=== PATIENT | male | born 1965 | race African-American/Black ===

== ENCOUNTER 2020-05-11 13:12 | Inpatient (IN) | payer OTHER ==
[2020-05-11 14:18] VITALS: BMI 23.0
--- NOTE | 2020-05-11 14:21 | HP ---
CIWA Score Nausea/Vomitin Muscle Tremors: None Anxiety: 2 Agitation: 2 Paroxysmal Sweats: 2 Orientation: 0-Oriented Tacttile Disturbances: 2-Mild Itch/Numbness/Burn Auditory Disturbances: 1-Very Mild Visual Disturbances: 0-None Headache: 3-Moderate CIWA-Ar Total Score: 14 - Admission Criteria OASAS Guidelines: Admission for Medically Managed Detox: Requires at least one of the followin. CIWA greater than 12 2. Seizures within the past 24 hours 3. Delirium tremens within the past 24 hours 4. Hallucinations within the past 24 hours 5. Acute intervention needed for co occurring medical disorder 6. Acute intervention needed for co occurring psychiatric disorder 7. Severe withdrawal that cannot be handled at a lower level of care (continued vomiting, continued diarrhea, abnormal vital signs) requiring intravenous medication and/or fluids 8. Patient presents the following: CIWA greater than 12 Admission Criteria Met: Admission criteria met Admission ROS [facility] Chief Complaint: "I need to be detoxed from alcohol and go to rehab to get my life in order, to get my life back together." Allergies/Adverse Reactions: Allergies Allergy/AdvReac Type Severity Reaction Status Date / Time No Known Allergies Allergy Verified 05/11/20 14:36 History of Present Illness: 54 year old man presents for detox from alcohol. He reports last detox was in 2016 in [place]. He denies seizures but reports blackouts, last episode about 3 weeks ago. Exam Limitations: No Limitations - Ebola screening Have you traveled outside of the country in the last 21 days: No Have you had contact with anyone from an Ebola affected area: No Have you been sick,other than usual withdrawal symptoms: No Do you have a fever: No - Review of Systems Constitutional: Chills, Loss of Appetite, Changes in sleep, Unintentional Wgt. Loss EENT: reports: Blurred Vision, Throat Pain (s/p treatment with antibiotics) Respiratory: reports: No Symptoms reported, Cough Cardiac: reports: No Symptoms Reported GI: reports: Diarrhea, Nausea, Poor Fluid Intake, Abdominal cramping : reports: No Symptoms Reported Musculoskeletal: reports: Other (bottom of both feet) Neuro: reports: Headache, Numbness, Tremors Endocrine: reports: No Symptoms Reported Hematology: reports: No Symptoms Reported Psychiatric: reports: Anxious, Depressed Other Systems: Reviewed and Negative Patient History - Patient Medical History Hx Anemia: No Hx Asthma: Yes Hx Chronic Obstructive Pulmonary Disease (COPD): No Hx Cancer: No Hx Cardiac Disorders: No Hx Congestive Heart Failure: No Hx Hypertension: Yes Hx Hypercholesterolemia: No Hx Pacemaker: No HX Cerebrovascular Accident: No Hx Seizures: No Hx Dementia: No Hx Diabetes: No Hx Gastrointestinal Disorders: No Hx Liver Disease: No Hx Genitourinary Disorders: No Hx Sexually Transmitted Disorders: Yes Hx Renal Disease (ESRD): No Hx Thyroid Disease: No Hx Human Immunodeficiency Virus (HIV): Yes (diagnosed 20 years) Hx Depression: Yes Hx Suicide Attempt: Yes (4 years ago, cut wrist) Hx Bipolar Disorder: Yes Hx Schizophrenia: No - Patient Surgical History Past Surgical History: Yes Hx Neurologic Surgery: No Hx Cataract Extraction: No Hx Cardiac Surgery: No Hx Lung Surgery: No Hx Breast Surgery: No Hx Breast Biopsy: No Hx Abdominal Surgery: No Hx Appendectomy: Yes (as a child) Hx Cholecystectomy: No Hx Genitourinary Surgery: No Hx Section: No Hx Orthopedic Surgery: No Hx Hysterectomy: No Other Surgical History: bunionectomy Anesthesia Reaction: No - PPD History Previous Implant?: Yes Documented Results: Negative w/o proof Implanted On Prior R Admission?: No PPD to be Administered?: Yes - Smoking Cessation Smoking history: Current every day smoker Have you smoked in the past 12 months: Yes Aproximately how many cigarettes per day: 15 Hx Chewing Tobacco Use: No Initiated information on smoking cessation: Yes 'Breaking Loose' booklet given: 05/11/20 - Substance & Tx. History Hx Alcohol Use: Yes (beer, liqour) Hx Substance Use: Yes Substance Use Type: Alcohol, Cocaine Hx Substance Use Treatment: Yes - Substances abused Alcohol Substance route: Oral Frequency: Daily Amount used: 12 packs/day, 2 pints of scotch/merlyn Age of first use: 16 Date of last use: 05/10/20 Crack Substance route: Smoking Frequency: Daily Amount used: $100 Age of first use: 19 Date of last use: 05/10/20 Admission Physical Exam BHS - Physical General Appearance: Yes: No Apparent Distress HEENTM: Yes: Hearing grossly Normal, Normocephalic, Normal Voice, TINA Respiratory: Yes: Chest Non-Tender, Lungs Clear, Normal Breath Sounds, No Respi ratory Distress, No Accessory Muscle Use Neck: Yes: No masses,lesions,Nodules, Supple Breast: Yes: Breast Exam Deferred Cardiology: Yes: Regular Rhythm, Regular Rate, S1, S2 Abdominal: Yes: Normal Bowel Sounds, Non Tender, Soft Genitourinary: Yes: Within Normal Limits Back: Yes: Normal Inspection Musculoskeletal: Yes: full range of Motion, Gait Steady, Pelvis Stable, Muscle Pain Extremities: Yes: Normal Range of Motion, Tremors 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 NML intact, Fully Oriented, Alert, Normal Mood/Affect, Normal Response Integumentary: Yes: Cold Lymphatic: Yes: Within Normal Limits - Diagnostic (1) Alcohol dependence with withdrawal Current Visit: Yes Status: Acute Qualifiers: Complication of substance-induced condition: uncomplicated Qualified Code(s): F10.230 - Alcohol dependence with withdrawal, uncomplicated (2) HIV (human immunodeficiency virus infection) Current Visit: Yes Status: Acute Qualifiers: HIV symptom status: symptomatic Qualified Code(s): B20 - Human immunodeficiency virus [HIV] disease (3) Crack cocaine use Current Visit: Yes Status: Acute (4) Nicotine dependence Current Visit: Yes Status: Chronic Qualifiers: Nicotine product type: cigarettes Substance use status: uncomplicated Qualified Code(s): F17.210 - Nicotine dependence, cigarettes, uncomplicated Cleared for Admission [facility] - Detox or Rehab [facility] Level of Care: Medically Managed Detox Regimen/Protocol: Librium Claeared for Rehab Admission: No Inpatient Rehab Admission - Rehab Decision to Admit Inpatient rehab admission?: No
[2020-05-11] MEDS ORDERED: MAG HYDROX/AL HYDROX/SIMETH 30 ML UNIT-DOSE CUP PO PRN (14:36)
[2020-05-11] MEDS ORDERED: BISMUTH SUBSALICYLATE 524 MG/30 ML UD PO PRN (14:36)
[2020-05-11] MEDS ORDERED: chlordiazePOXIDE HCL 25 MG CAPSULE PO ONE (14:36)
[2020-05-11] MEDS ORDERED: IBUPROFEN 400 MG TABLET (FP) PO PRN (14:36)
[2020-05-11] MEDS ORDERED: ONDANSETRON *ODT* 4 MG TABLET SL ONE (14:36)
[2020-05-11] MEDS ORDERED: ACETAMINOPHEN 325 MG TABLET (FP) PO PRN ×2 (14:36)
[2020-05-11] MEDS ORDERED: chlordiazePOXIDE HCL 10 MG CAPSULE PO PRN (14:36)
[2020-05-11] MEDS ORDERED: MAGNESIUM HYDROX 2400MG/30ML ORAL SUSPENSION 30 ML CUP PO PRN (14:36)
[2020-05-11] MEDS ORDERED: MAGNESIUM CITRATE 300 ML BOTTLE PO PRN (14:36)
[2020-05-11] MEDS ORDERED: METHOCARBAMOL 500 MG TABLET PO PRN (14:36)
[2020-05-11] MEDS ORDERED: TUBERCULIN PPD 5 TU/0.1ML VIAL ID ONE (15:51)
[2020-05-11] MEDS: NICOTINE POLACRILEX 2 MG GUM BUC PRN (17:36)
[2020-05-11] MEDS ORDERED: traZODone HCL 50 MG TABLET (FP) PO ONE (22:00)
[2020-05-11] MEDS: THIAMINE HCL 100 MG TABLET (FP) PO SCH (22:28)
[2020-05-11] MEDS: MELATONIN 5 MG TABLETS PO SCH (22:28)
[2020-05-11] MEDS: chlordiazePOXIDE HCL 25 MG CAPSULE PO SCH (22:28)
[2020-05-11] MEDS: hydrOXYzine PAMOATE 25 MG CAPSULE (FP) PO PRN (22:28)
[2020-05-12] MEDS: chlordiazePOXIDE HCL 25 MG CAPSULE PO SCH ×3 (06:25→22:18)
[2020-05-12] MEDS: NICOTINE POLACRILEX 2 MG GUM BUC PRN (06:27)
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
[2020-05-12] MEDS: PRENATAL VITAMINS W/ FOLIC ACID TABLET (FP) PO SCH (10:28)
[2020-05-12] MEDS: NICOTINE 14 MG/24 HOURS TOPICAL PATCH TD SCH (10:28)
[2020-05-12] MEDS: QUEtiapine FUMARATE 25 MG TABLET PO SCH ×2 (10:29→22:18)
[2020-05-12] MEDS: ESCITALOPRAM OXALATE 10 MG TABLET PO SCH (10:29)
[2020-05-12] MEDS: DIVALPROEX SODIUM 500 MG TABLET E.C. PO SCH ×2 (10:30→22:18)
[2020-05-12 11:11] LABS: HEMATOCRIT 35.5 % (35.4-49); HEMOGLOBIN 11.3 GM/dL (11.7-16.9); MCH 28.6 pg (25.7-33.7); MCHC 31.8 g/dl (32.0-35.9); MEAN CELL VOLUME 89.9 fl (80-96); MEAN PLT VOLUME 10.7 fl (7.5-11.1); PLATELET COUNT 109 K/MM3 (134-434); RBC 3.95 M/mm3 (4.00-5.60); RDW 14.2 % (11.9-15.9); WHITE BLOOD COUNT 2.5 K/mm3 (4.0-10.0)
[2020-05-12 11:26] LABS: ALBUMIN 2.8 g/dl (3.4-5.0); BILIRUBIN,TOTAL 0.3 mg/dL (0.2-1); CALCIUM 8.2 mg/dL (8.5-10.1); CREATININE 1.1 mg/dL (0.55-1.3); POTASSIUM 3.5 mmol/L (3.5-5.1); TOT PROT 8.4 g/dl (6.4-8.2)
--- NOTE | 2020-05-12 12:01 | PN ---
S CIWA - CIWA Score Nausea/Vomitin-Mild Nausea/No Vomiting Muscle Tremors: 2 Anxiety: 2 Agitation: 1-Slight > Activity Paroxysmal Sweats: No Perspiration Orientation: 0-Oriented Tacttile Disturbances: 1-Very Mild Itch/Numbness Auditory Disturbances: 0-None Visual Disturbances: 0-None Headache: 2-Mild CIWA-Ar Total Score: 9 BHS Progress Note (SOAP) Subjective: alert,irritable,anxious,interrupted sleep,pain in the body Objective: 05/12/20 11:57 Vital Signs Temperature 97.7 F 05/12/20 09:26 Pulse Rate 74 05/12/20 09:26 Respiratory Rate 18 05/12/20 09:26 Blood Pressure 104/59 L 05/12/20 09:26 O2 Sat by Pulse Oximetry (%) 96 05/12/20 09:26 05/12/20 11:57 Laboratory Last Values WBC 2.5 K/mm3 (4.0-10.0) L 05/12/20 08:00 RBC 3.95 M/mm3 (4.00-5.60) L 05/12/20 08:00 Hgb 11.3 GM/dL (11.7-16.9) L 05/12/20 08:00 Hct 35.5 % (35.4-49) 05/12/20 08:00 MCV 89.9 fl (80-96) 05/12/20 08:00 MCH 28.6 pg (25.7-33.7) 05/12/20 08:00 MCHC 31.8 g/dl (32.0-35.9) L 05/12/20 08:00 RDW 14.2 % (11.9-15.9) 05/12/20 08:00 Plt Count 109 K/MM3 (134-434) L 05/12/20 08:00 MPV 10.7 fl (7.5-11.1) 05/12/20 08:00 Sodium 142 mmol/L (136-145) 05/12/20 08:00 Potassium 3.5 mmol/L (3.5-5.1) 05/12/20 08:00 Chloride 110 mmol/L (98-107) H 05/12/20 08:00 Carbon Dioxide 27 mmol/L (21-32) 05/12/20 08:00 Anion Gap 5 MMOL/L (8-16) L 05/12/20 08:00 BUN 20.0 mg/dL (7-18) H 05/12/20 08:00 Creatinine 1.1 mg/dL (0.55-1.3) 05/12/20 08:00 Est GFR (CKD-EPI)AfAm 88.36 05/12/20 08:00 Est GFR (CKD-EPI)NonAf 76.24 05/12/20 08:00 Random Glucose 116 mg/dL (74-106) H 05/12/20 08:00 Calcium 8.2 mg/dL (8.5-10.1) L 05/12/20 08:00 Total Bilirubin 0.3 mg/dL (0.2-1) 05/12/20 08:00 AST 42 U/L (15-37) H 05/12/20 08:00 ALT 38 U/L (13-61) 05/12/20 08:00 Alkaline Phosphatase 79 U/L (45-117) 05/12/20 08:00 Total Protein 8.4 g/dl (6.4-8.2) H 05/12/20 08:00 Albumin 2.8 g/dl (3.4-5.0) L 05/12/20 08:00 Assessment: 05/12/20 11:58 withdrawal symptom Plan: continue detox librium regimen,pancytopenia most probably form alcoholim and hiv,azothemia dehydration,encourage oral fluid,ensure plus, repeat cbc,cmp,inr in am patient stated he has hiv for 20 years has been complied with medication, descovy 200mg-25 mg 1 tab po hs last taken 05/10/2020 isentress 400 mgs po bid last taken 05/10/2020 amlodipine 5 mgs po daily last 05/10/2020 did not have to take albuterol inhaler for the long time and does not need it
[2020-05-12] MEDS ORDERED: ALBUTEROL SO4 HFA INHALER IH PRN (14:21)
[2020-05-12] MEDS: hydrOXYzine PAMOATE 25 MG CAPSULE (FP) PO PRN (22:18)
[2020-05-12] MEDS: RALTEGRAVIR POTASSIUM 400 MG TAB PO SCH (22:18)
[2020-05-12] MEDS: THIAMINE HCL 100 MG TABLET (FP) PO SCH (22:18)
[2020-05-12] MEDS: MELATONIN 5 MG TABLETS PO SCH (22:18)
[2020-05-12] MEDS: QUEtiapine FUMARATE 300 MG TABLET PO SCH (22:18)
[2020-05-12] MEDS: EMTRICITABINE/TENOFOV ALAFENAM (DESCOVY) TABLET PO SCH (22:20)
[2020-05-13] MEDS: chlordiazePOXIDE 5 MG CAPSULE PO SCH ×3 (06:43→21:31)
[2020-05-13] MEDS: ESCITALOPRAM OXALATE 10 MG TABLET PO SCH (10:24)
[2020-05-13] MEDS: QUEtiapine FUMARATE 25 MG TABLET PO SCH ×2 (10:24→21:32)
[2020-05-13] MEDS: PRENATAL VITAMINS W/ FOLIC ACID TABLET (FP) PO SCH (10:24)
[2020-05-13] MEDS: SULFAMETHOXAZOLE/TRIMETHOPRIM 800MG/160MG D.S. TABLET PO SCH (10:24)
[2020-05-13] MEDS: amLODIPine BESYLATE 5 MG TABLET (FP) PO SCH (10:24)
[2020-05-13] MEDS: RALTEGRAVIR POTASSIUM 400 MG TAB PO SCH ×2 (10:24→21:32)
[2020-05-13] MEDS: DIVALPROEX SODIUM 500 MG TABLET E.C. PO SCH ×2 (10:24→21:32)
[2020-05-13] MEDS: NICOTINE 14 MG/24 HOURS TOPICAL PATCH TD SCH (10:25)
[2020-05-13 11:55] LABS: HEMATOCRIT 34.6 % (35.4-49); HEMOGLOBIN 11.1 GM/dL (11.7-16.9); MCH 28.9 pg (25.7-33.7); MCHC 32.1 g/dl (32.0-35.9); MEAN PLT VOLUME 11.1 fl (7.5-11.1); PLATELET COUNT 116 K/MM3 (134-434); RBC 3.85 M/mm3 (4.00-5.60); RDW 14.7 % (11.9-15.9); WHITE BLOOD COUNT 2.4 K/mm3 (4.0-10.0)
[2020-05-13 11:57] LABS: INR 0.91 (0.83-1.09); PROTHROMBIN TIME (PATIENT) 10.7 SEC (9.7-13.0)
[2020-05-13 12:00] LABS: ALBUMIN 2.8 g/dl (3.4-5.0); BILIRUBIN,TOTAL 0.4 mg/dL (0.2-1); BLOOD UREA NITROGEN 14.9 mg/dL (7-18); CALCIUM 8.6 mg/dL (8.5-10.1); POTASSIUM 3.9 mmol/L (3.5-5.1); TOT PROT 8.4 g/dl (6.4-8.2)
--- NOTE | 2020-05-13 12:31 | PN ---
S CIWA - CIWA Score Nausea/Vomitin-No Nausea/No Vomiting Muscle Tremors: 2 Anxiety: 4-Mod. Anxious/Guarded Agitation: 0-Normal Activity Paroxysmal Sweats: No Perspiration Orientation: 0-Oriented Tacttile Disturbances: 0-None Auditory Disturbances: 0-None Visual Disturbances: 0-None Headache: 0-None Present CIWA-Ar Total Score: 6 BHS Progress Note (SOAP) Subjective: pt c/o slight tremors fatigue and sleepy intermittent sleep last night sweats feet pain Objective: 05/13/20 12:39 Vital Signs - 24 hr 05/12/20 05/12/20 05/12/20 13:08 16:20 20:20 Temperature 98.2 F 97.5 F L 97.5 F L Pulse Rate 87 89 85 Respiratory 16 18 18 Rate Blood Pressure 124/70 118/72 137/85 O2 Sat by Pulse 96 Oximetry (%) 05/12/20 05/13/20 05/13/20 20:30 06:18 09:30 Temperature 98.2 F 97.8 F Pulse Rate 105 H 81 Respiratory 18 18 Rate Blood Pressure 124/81 124/72 O2 Sat by Pulse 98 94 L 97 Oximetry (%) Laboratory Tests 05/11/20 05/11/20 05/11/20 08:00 08:00 13:15 WBC RBC Hgb Hct MCV MCH MCHC RDW Plt Count MPV PT with INR INR Sodium Potassium Chloride Carbon Dioxide Anion Gap BUN Creatinine Est GFR (CKD-EPI)AfAm Est GFR (CKD-EPI)NonAf Random Glucose Calcium Total Bilirubin AST ALT Alkaline Phosphatase Total Protein Albumin Valproic Acid Syphilis Serology Reactive A* RPR Titer Reactive 1:1 H COVID-19 ([facility]) Not detected 05/12/20 05/12/20 05/12/20 08:00 08:00 09:00 WBC 2.5 L RBC 3.95 L Hgb 11.3 L Hct 35.5 MCV 89.9 MCH 28.6 MCHC 31.8 L RDW 14.2 Plt Count 109 L MPV 10.7 PT with INR INR Sodium 142 Potassium 3.5 Chloride 110 H Carbon Dioxide 27 Anion Gap 5 L BUN 20.0 H Creatinine 1.1 Est GFR (CKD-EPI)AfAm 88.36 Est GFR (CKD-EPI)NonAf 76.24 Random Glucose 116 H Calcium 8.2 L Total Bilirubin 0.3 AST 42 H ALT 38 Alkaline Phosphatase 79 Total Protein 8.4 H Albumin 2.8 L Valproic Acid 9.7 L Syphilis Serology RPR Titer COVID-19 ([facility]A) 05/13/20 05/13/20 05/13/20 08:15 08:15 08:15 WBC 2.4 L RBC 3.85 L Hgb 11.1 L Hct 34.6 L MCV 90.0 MCH 28.9 MCHC 32.1 RDW 14.7 Plt Count 116 L MPV 11.1 PT with INR 10.70 INR 0.91 Sodium 143 Potassium 3.9 Chloride 112 H Carbon Dioxide 26 Anion Gap 5 L BUN 14.9 Creatinine 1.0 Est GFR (CKD-EPI)AfAm 99.15 Est GFR (CKD-EPI)NonAf 85.55 Random Glucose 94 Calcium 8.6 Total Bilirubin 0.4 AST 33 ALT 36 Alkaline Phosphatase 86 Total Protein 8.4 H Albumin 2.8 L Valproic Acid Syphilis Serology RPR Titer COVID-19 ([facility]) labs noted. Pt reports unaware of previous syphilis infection and has never been treated for such in the past but was at "[facility] for throat pain from a woman and was treated with penicillin". Pt is a poor historian. alert o x 3 nad oob ambulating with steady gait 05/14/20 13:33 Assessment: 05/13/20 12:40 withdrawal sx Plan: cont detox increase po fluids maintain safety Will see patient again tomorrow to ask further question on syphilis status.
[2020-05-13] MEDS: THIAMINE HCL 100 MG TABLET (FP) PO SCH (21:31)
[2020-05-13] MEDS: QUEtiapine FUMARATE 300 MG TABLET PO SCH (21:31)
[2020-05-13] MEDS: EMTRICITABINE/TENOFOV ALAFENAM (DESCOVY) TABLET PO SCH (21:32)
[2020-05-13] MEDS: hydrOXYzine PAMOATE 25 MG CAPSULE (FP) PO PRN (21:32)
[2020-05-13] MEDS: MELATONIN 5 MG TABLETS PO SCH (21:33)
[2020-05-14] MEDS ORDERED: chlordiazePOXIDE HCL 10 MG CAPSULE PO PRN
[2020-05-14] MEDS: hydrOXYzine PAMOATE 25 MG CAPSULE (FP) PO PRN ×2 (06:29→22:20)
[2020-05-14] MEDS: chlordiazePOXIDE HCL 10 MG CAPSULE PO SCH ×3 (06:32→22:21)
[2020-05-14] MEDS: DIVALPROEX SODIUM 500 MG TABLET E.C. PO SCH ×2 (10:20→22:21)
[2020-05-14] MEDS: QUEtiapine FUMARATE 25 MG TABLET PO SCH ×2 (10:20→22:36)
[2020-05-14] MEDS: SULFAMETHOXAZOLE/TRIMETHOPRIM 800MG/160MG D.S. TABLET PO SCH (10:20)
[2020-05-14] MEDS: amLODIPine BESYLATE 5 MG TABLET (FP) PO SCH (10:20)
[2020-05-14] MEDS: ESCITALOPRAM OXALATE 10 MG TABLET PO SCH (10:20)
[2020-05-14] MEDS: NICOTINE 14 MG/24 HOURS TOPICAL PATCH TD SCH (10:21)
[2020-05-14] MEDS: RALTEGRAVIR POTASSIUM 400 MG TAB PO SCH ×2 (10:21→22:21)
[2020-05-14] MEDS: PRENATAL VITAMINS W/ FOLIC ACID TABLET (FP) PO SCH (10:21)
--- NOTE | 2020-05-14 13:35 | PN ---
[facility] CIWA - CIWA Score Nausea/Vomitin-No Nausea/No Vomiting Muscle Tremors: 3 Anxiety: 4-Mod. Anxious/Guarded Agitation: 2 Paroxysmal Sweats: No Perspiration Orientation: 0-Oriented Tacttile Disturbances: 0-None Auditory Disturbances: 0-None Visual Disturbances: 0-None Headache: 0-None Present CIWA-Ar Total Score: 9 BHS Progress Note (SOAP) Subjective: c/o anxiety slight tremors fatigue Pt denies any symptoms. Afebrile. Objective: 05/14/20 13:44 Vital Signs - 24 hr 05/13/20 05/13/20 05/14/20 16:46 20:25 06:12 Temperature 98.2 F 97.3 F L 98.4 F Pulse Rate 87 89 75 Respiratory 17 20 20 Rate Blood Pressure 107/72 131/75 147/91 O2 Sat by Pulse 96 94 L Oximetry (%) Laboratory Tests 05/11/20 05/11/20 05/11/20 08:00 08:00 13:15 WBC RBC Hgb Hct MCV MCH MCHC RDW Plt Count MPV PT with INR INR Sodium Potassium Chloride Carbon Dioxide Anion Gap BUN Creatinine Est GFR (CKD-EPI)AfAm Est GFR (CKD-EPI)NonAf Random Glucose Calcium Total Bilirubin AST ALT Alkaline Phosphatase Total Protein Albumin Valproic Acid Syphilis Serology Reactive A* RPR Titer Reactive 1:1 H COVID-19 ([facility]) Not detected 05/12/20 05/12/20 05/12/20 08:00 08:00 09:00 WBC 2.5 L RBC 3.95 L Hgb 11.3 L Hct 35.5 MCV 89.9 MCH 28.6 MCHC 31.8 L RDW 14.2 Plt Count 109 L MPV 10.7 PT with INR INR Sodium 142 Potassium 3.5 Chloride 110 H Carbon Dioxide 27 Anion Gap 5 L BUN 20.0 H Creatinine 1.1 Est GFR (CKD-EPI)AfAm 88.36 Est GFR (CKD-EPI)NonAf 76.24 Random Glucose 116 H Calcium 8.2 L Total Bilirubin 0.3 AST 42 H ALT 38 Alkaline Phosphatase 79 Total Protein 8.4 H Albumin 2.8 L Valproic Acid 9.7 L Syphilis Serology RPR Titer COVID-19 ([facility]ISTA) Alert o x 3 nad oob ambulating with steady gait Medically stable Today, pt reports he was at [facility] for Suicidal ideation 1 - 2 weeks ago and had sore throat at the time and was given lozenges. Also states lab work was drawn but did not get result before leaving. Asked pt again re:past syphilis hx and he said no past infection known. Pt reports unprotected sex the past weeks. Pt reports no steady PCP having moved from [place] 3 months ago but received care at [facility],last visit at [facility] 1-2 weeks ago as above. Reports he was restarted with his antiretroviral medications at the "[facility]" but has no current I.D clinic meanwhile. Pt reports he is currently undomiciled with no steady housing. Assessment: 05/14/20 13:58 withdrawal sx Plan: cont detox increase po fluids maintain safety Bicillin LA 2.4 mil. units x once Pt is interested in Rehab treatment for CD aftercare. Pt may D/.c to rehab in the morning if bed is available
[2020-05-14] MEDS ORDERED: PENICILLIN G BENZATHINE 2,400,000 UNIT/4 ML PFS IM ONE (14:00)
[2020-05-14] MEDS: QUEtiapine FUMARATE 300 MG TABLET PO SCH (22:21)
[2020-05-14] MEDS: THIAMINE HCL 100 MG TABLET (FP) PO SCH (22:21)
[2020-05-14] MEDS: MELATONIN 5 MG TABLETS PO SCH (22:22)
[2020-05-14] MEDS: EMTRICITABINE/TENOFOV ALAFENAM (DESCOVY) TABLET PO SCH (22:24)
[2020-05-15] MEDS ORDERED: chlordiazePOXIDE HCL 10 MG CAPSULE PO ONE (05:00)
[2020-05-15] MEDS: PRENATAL VITAMINS W/ FOLIC ACID TABLET (FP) PO SCH (09:40)
[2020-05-15] MEDS: SULFAMETHOXAZOLE/TRIMETHOPRIM 800MG/160MG D.S. TABLET PO SCH (09:40)
[2020-05-15] MEDS: ESCITALOPRAM OXALATE 10 MG TABLET PO SCH (09:40)
[2020-05-15] MEDS: amLODIPine BESYLATE 5 MG TABLET (FP) PO SCH (09:40)
[2020-05-15] MEDS: DIVALPROEX SODIUM 500 MG TABLET E.C. PO SCH ×2 (09:40→21:02)
[2020-05-15] MEDS: RALTEGRAVIR POTASSIUM 400 MG TAB PO SCH ×2 (09:40→22:46)
[2020-05-15] MEDS: NICOTINE 14 MG/24 HOURS TOPICAL PATCH TD SCH (09:40)
[2020-05-15] MEDS: QUEtiapine FUMARATE 25 MG TABLET PO SCH ×2 (09:40→22:46)
[2020-05-15] MEDS: MENTHOL/PHENOL 1 EACH UD MM PRN (09:47)
--- NOTE | 2020-05-15 09:55 | DS ---
[facility] Detox Discharge Summary Admission Date: 05/11/20 Discharge Date: 05/15/20 - History Present History: Alcohol Dependence, Cocaine Dependence Pertinent Past History: Asthma HIV+ HTN PTSD ADDH - Physical Exam Results Vital Signs: Vital Signs Temperature 98.2 F 05/15/20 07:01 Pulse Rate 79 05/15/20 07:01 Respiratory Rate 18 05/15/20 07:01 Blood Pressure 138/81 05/15/20 07:01 O2 Sat by Pulse Oximetry (%) 97 05/15/20 07:01 Alert o x 3 nad oob ambulating with steady gait cardiac:s1 s2,rrr lungs:ctab abdomen:soft,+bs,nt,nd extremities:no edema,skin intact Pertinent Admission Physical Exam Findings: Laboratory Tests 05/11/20 05/11/20 05/11/20 08:00 08:00 13:15 WBC RBC Hgb Hct MCV MCH MCHC RDW Plt Count MPV PT with INR INR Sodium Potassium Chloride Carbon Dioxide Anion Gap BUN Creatinine Est GFR (CKD-EPI)AfAm Est GFR (CKD-EPI)NonAf Random Glucose Calcium Total Bilirubin AST ALT Alkaline Phosphatase Total Protein Albumin Valproic Acid Syphilis Serology Reactive A* RPR Titer Reactive 1:1 H COVID-19 ([facility]) Not detected 05/12/20 05/12/20 05/12/20 08:00 08:00 09:00 WBC 2.5 L RBC 3.95 L Hgb 11.3 L Hct 35.5 MCV 89.9 MCH 28.6 MCHC 31.8 L RDW 14.2 Plt Count 109 L MPV 10.7 PT with INR INR Sodium 142 Potassium 3.5 Chloride 110 H Carbon Dioxide 27 Anion Gap 5 L BUN 20.0 H Creatinine 1.1 Est GFR (CKD-EPI)AfAm 88.36 Est GFR (CKD-EPI)NonAf 76.24 Random Glucose 116 H Calcium 8.2 L Total Bilirubin 0.3 AST 42 H ALT 38 Alkaline Phosphatase 79 Total Protein 8.4 H Albumin 2.8 L Valproic Acid 9.7 L Syphilis Serology RPR Titer COVID-19 ([facility]ISTA) 05/13/20 05/13/20 05/13/20 08:15 08:15 08:15 WBC 2.4 L RBC 3.85 L Hgb 11.1 L Hct 34.6 L MCV 90.0 MCH 28.9 MCHC 32.1 RDW 14.7 Plt Count 116 L MPV 11.1 PT with INR 10.70 INR 0.91 Sodium 143 Potassium 3.9 Chloride 112 H Carbon Dioxide 26 Anion Gap 5 L BUN 14.9 Creatinine 1.0 Est GFR (CKD-EPI)AfAm 99.15 Est GFR (CKD-EPI)NonAf 85.55 Random Glucose 94 Calcium 8.6 Total Bilirubin 0.4 AST 33 ALT 36 Alkaline Phosphatase 86 Total Protein 8.4 H Albumin 2.8 L Valproic Acid Syphilis Serology RPR Titer COVID-19 ([facility]ISTA) Bicillin LA 2.4 mil. unit x 1 given on 05/14/[address] [place] [address]. - Treatment Hospital Course: Detox Protocol Followed, Detoxed Safely, Responded well, Discharged Condition Good, Rehab Referral Accepted Patient has Accepted a Rehab Referral to: [facility] - Medication Discharge Medications: Ambulatory Orders Amlodipine Besylate [Norvasc -] 5 mg PO DAILY 05/11/20 Divalproex [Depakote -] 500 mg PO BID 05/11/20 Emtricitabine/Tenofov Alafenam [Descovy 200-25 mg Tablet (Nf)] 1 each PO DAILY 05/11/20 Escitalopram Oxalate [Lexapro -] 10 mg PO DAILY 05/11/20 Mirtazapine [Remeron -] 15 mg PO DAILY 05/11/20 Quetiapine Fumarate [Seroquel -] 25 mg PO BID 05/11/20 Quetiapine Fumarate [Seroquel -] 300 mg PO HS 05/11/20 Raltegravir Potassium [Isentress] 400 mg PO BID 05/11/20 Sulfamethoxazole/Trimethoprim [Bactrim Ds -] 1 tab PO DAILY 05/11/20 traZODone HCL [Trazodone HCl] 100 mg PO HS 05/11/20 - Diagnosis (1) Alcohol dependence with withdrawal Current Visit: Yes Status: Acute Qualifiers: Complication of substance-induced condition: uncomplicated Qualified Code(s): F10.230 - Alcohol dependence with withdrawal, uncomplicated (2) Cocaine dependence Current Visit: Yes Status: Acute (3) Bronchial asthma Current Visit: Yes Status: Chronic (4) HIV (human immunodeficiency virus infection) Current Visit: Yes Status: Chronic Qualifiers: HIV symptom status: symptomatic Qualified Code(s): B20 - Human immunodeficiency virus [HIV] disease (5) HTN (hypertension) Current Visit: Yes Status: Chronic (6) Nicotine dependence Current Visit: Yes Status: Chronic Qualifiers: Nicotine product type: cigarettes Substance use status: uncomplicated Qualified Code(s): F17.210 - Nicotine dependence, cigarettes, uncomplicated - AMA Did Patient Leave Against Medical Advice: No
[2020-05-15] MEDS ORDERED: PT OWN MED DRAWER 7, Y5N ONE (20:24)
[2020-05-15] MEDS: MELATONIN 5 MG TABLETS PO SCH (21:02)
[2020-05-15] MEDS: QUEtiapine FUMARATE 300 MG TABLET PO SCH (21:02)
[2020-05-15] MEDS: THIAMINE HCL 100 MG TABLET (FP) PO SCH (21:02)
[2020-05-15] MEDS: EMTRICITABINE/TENOFOV ALAFENAM (DESCOVY) TABLET PO SCH (22:46)
[2020-05-16] MEDS ORDERED: PT OWN MED DRAWER 7, Y5N ONE ×2 (08:18→19:16)
[2020-05-16] MEDS: ESCITALOPRAM OXALATE 10 MG TABLET PO SCH (09:14)
[2020-05-16] MEDS: DIVALPROEX SODIUM 500 MG TABLET E.C. PO SCH ×2 (09:14→21:32)
[2020-05-16] MEDS: SULFAMETHOXAZOLE/TRIMETHOPRIM 800MG/160MG D.S. TABLET PO SCH (09:14)
[2020-05-16] MEDS: NICOTINE 14 MG/24 HOURS TOPICAL PATCH TD SCH (09:15)
[2020-05-16] MEDS: amLODIPine BESYLATE 5 MG TABLET (FP) PO SCH (09:16)
[2020-05-16] MEDS: RALTEGRAVIR POTASSIUM 400 MG TAB PO SCH ×2 (09:47→21:32)
[2020-05-16] MEDS: QUEtiapine FUMARATE 25 MG TABLET PO SCH ×2 (09:47→21:33)
[2020-05-16] MEDS: PRENATAL VITAMINS W/ FOLIC ACID TABLET (FP) PO SCH (09:47)
[2020-05-16] MEDS: EMTRICITABINE/TENOFOV ALAFENAM (DESCOVY) TABLET PO SCH (21:32)
[2020-05-16] MEDS: QUEtiapine FUMARATE 300 MG TABLET PO SCH (21:32)
[2020-05-16] MEDS: MELATONIN 5 MG TABLETS PO SCH (21:32)
[2020-05-16] MEDS: THIAMINE HCL 100 MG TABLET (FP) PO SCH (21:33)
[2020-05-17] MEDS ORDERED: MASKS NR ONE (05:53)
[2020-05-17] MEDS ORDERED: PT OWN MED DRAWER 7, Y5N ONE (08:46)
[2020-05-17] MEDS: SULFAMETHOXAZOLE/TRIMETHOPRIM 800MG/160MG D.S. TABLET PO SCH (09:26)
[2020-05-17] MEDS: ESCITALOPRAM OXALATE 10 MG TABLET PO SCH (09:26)
[2020-05-17] MEDS: DIVALPROEX SODIUM 500 MG TABLET E.C. PO SCH ×2 (09:26→21:51)
[2020-05-17] MEDS: amLODIPine BESYLATE 5 MG TABLET (FP) PO SCH (09:26)
[2020-05-17] MEDS: PRENATAL VITAMINS W/ FOLIC ACID TABLET (FP) PO SCH (09:27)
[2020-05-17] MEDS: NICOTINE 14 MG/24 HOURS TOPICAL PATCH TD SCH (09:27)
[2020-05-17] MEDS: QUEtiapine FUMARATE 25 MG TABLET PO SCH ×2 (09:27→21:51)
[2020-05-17] MEDS: MENTHOL/PHENOL 1 EACH UD MM PRN (09:29)
[2020-05-17] MEDS: RALTEGRAVIR POTASSIUM 400 MG TAB PO SCH ×2 (09:52→21:52)
[2020-05-17] MEDS: EMTRICITABINE/TENOFOV ALAFENAM (DESCOVY) TABLET PO SCH (21:52)
[2020-05-17] MEDS: QUEtiapine FUMARATE 300 MG TABLET PO SCH (21:52)
[2020-05-17] MEDS: MELATONIN 5 MG TABLETS PO SCH (21:52)
[2020-05-17] MEDS: THIAMINE HCL 100 MG TABLET (FP) PO SCH (21:53)
[2020-05-18] MEDS ORDERED: PT OWN MED DRAWER 7, Y5N ONE ×2 (08:44→21:33)
[2020-05-18] MEDS: RALTEGRAVIR POTASSIUM 400 MG TAB PO SCH ×2 (09:31→21:32)
[2020-05-18] MEDS: ESCITALOPRAM OXALATE 10 MG TABLET PO SCH (09:31)
[2020-05-18] MEDS: QUEtiapine FUMARATE 25 MG TABLET PO SCH ×2 (09:31→22:37)
[2020-05-18] MEDS: amLODIPine BESYLATE 5 MG TABLET (FP) PO SCH (09:31)
[2020-05-18] MEDS: DIVALPROEX SODIUM 500 MG TABLET E.C. PO SCH ×2 (09:31→22:37)
[2020-05-18] MEDS: SULFAMETHOXAZOLE/TRIMETHOPRIM 800MG/160MG D.S. TABLET PO SCH (09:31)
[2020-05-18] MEDS: PRENATAL VITAMINS W/ FOLIC ACID TABLET (FP) PO SCH (09:32)
[2020-05-18] MEDS: NICOTINE 14 MG/24 HOURS TOPICAL PATCH TD SCH (09:33)
[2020-05-18] MEDS: THIAMINE HCL 100 MG TABLET (FP) PO SCH (21:28)
[2020-05-18] MEDS: MELATONIN 5 MG TABLETS PO SCH (21:28)
[2020-05-18] MEDS: QUEtiapine FUMARATE 300 MG TABLET PO SCH (21:28)
[2020-05-18] MEDS: EMTRICITABINE/TENOFOV ALAFENAM (DESCOVY) TABLET PO SCH (21:33)
[2020-05-19] MEDS: PRENATAL VITAMINS W/ FOLIC ACID TABLET (FP) PO SCH (10:12)
[2020-05-19] MEDS: NICOTINE 14 MG/24 HOURS TOPICAL PATCH TD SCH (10:12)
[2020-05-19] MEDS: amLODIPine BESYLATE 5 MG TABLET (FP) PO SCH (10:12)
[2020-05-19] MEDS: ESCITALOPRAM OXALATE 10 MG TABLET PO SCH (10:12)
[2020-05-19] MEDS: DIVALPROEX SODIUM 500 MG TABLET E.C. PO SCH ×2 (11:37→21:15)
[2020-05-19] MEDS: RALTEGRAVIR POTASSIUM 400 MG TAB PO SCH ×2 (11:37→21:16)
[2020-05-19] MEDS: SULFAMETHOXAZOLE/TRIMETHOPRIM 800MG/160MG D.S. TABLET PO SCH (11:37)
[2020-05-19] MEDS: QUEtiapine FUMARATE 25 MG TABLET PO SCH ×2 (11:37→21:19)
--- NOTE | 2020-05-19 13:57 | PN ---
[facility] Progress Note Note: Patient evaluated for c/o swelling to bilateral feet. Patient has hx of HTN and alcohol dependence. Treated with amlodipine 5mg daily. He denies any c/o chest pain, sob and dizziness. Laboratory Tests 05/11/20 05/11/20 05/11/20 08:00 08:00 13:15 WBC RBC Hgb Hct MCV MCH MCHC RDW Plt Count MPV PT with INR INR Sodium Potassium Chloride Carbon Dioxide Anion Gap BUN Creatinine Est GFR (CKD-EPI)AfAm Est GFR (CKD-EPI)NonAf Random Glucose Calcium Total Bilirubin AST ALT Alkaline Phosphatase Total Protein Albumin Valproic Acid Syphilis Serology Reactive A* RPR Titer Reactive 1:1 H COVID-19 (TRISTA) Not detected 05/12/20 05/12/20 05/12/20 08:00 08:00 09:00 WBC 2.5 L RBC 3.95 L Hgb 11.3 L Hct 35.5 MCV 89.9 MCH 28.6 MCHC 31.8 L RDW 14.2 Plt Count 109 L MPV 10.7 PT with INR INR Sodium 142 Potassium 3.5 Chloride 110 H Carbon Dioxide 27 Anion Gap 5 L BUN 20.0 H Creatinine 1.1 Est GFR (CKD-EPI)AfAm 88.36 Est GFR (CKD-EPI)NonAf 76.24 Random Glucose 116 H Calcium 8.2 L Total Bilirubin 0.3 AST 42 H ALT 38 Alkaline Phosphatase 79 Total Protein 8.4 H Albumin 2.8 L Valproic Acid 9.7 L Syphilis Serology RPR Titer COVID-19 (TRISTA) 05/13/20 05/13/20 05/13/20 08:15 08:15 08:15 WBC 2.4 L RBC 3.85 L Hgb 11.1 L Hct 34.6 L MCV 90.0 MCH 28.9 MCHC 32.1 RDW 14.7 Plt Count 116 L MPV 11.1 PT with INR 10.70 INR 0.91 Sodium 143 Potassium 3.9 Chloride 112 H Carbon Dioxide 26 Anion Gap 5 L BUN 14.9 Creatinine 1.0 Est GFR (CKD-EPI)AfAm 99.15 Est GFR (CKD-EPI)NonAf 85.55 Random Glucose 94 Calcium 8.6 Total Bilirubin 0.4 AST 33 ALT 36 Alkaline Phosphatase 86 Total Protein 8.4 H Albumin 2.8 L Valproic Acid Syphilis Serology RPR Titer COVID-19 (TRISTA) PE alert and oriented x 3 skin warm and dry neck supple, no jvd in nad ext full rom, amb ad dragan +1 bilateral pitting pedal edema A/P Edema HTN Alcohol dependence Will d/c norvasc start HCTZ 25mg daily LULI stockings leg elevation prn monitor clinically
[2020-05-19] MEDS: HYDROCHLOROTHIAZIDE 25 MG TABLET (FP) PO SCH (14:06)
[2020-05-19] MEDS: QUEtiapine FUMARATE 300 MG TABLET PO SCH (21:15)
[2020-05-19] MEDS: THIAMINE HCL 100 MG TABLET (FP) PO SCH (21:15)
[2020-05-19] MEDS: MELATONIN 5 MG TABLETS PO SCH (21:15)
[2020-05-19] MEDS ORDERED: PT OWN MED DRAWER 7, Y5N ONE (21:17)
[2020-05-19] MEDS: EMTRICITABINE/TENOFOV ALAFENAM (DESCOVY) TABLET PO SCH (21:19)
[2020-05-20] MEDS ORDERED: PT OWN MED DRAWER 7, Y5N ONE ×2 (08:12→19:33)
[2020-05-20] MEDS: SULFAMETHOXAZOLE/TRIMETHOPRIM 800MG/160MG D.S. TABLET PO SCH (09:32)
[2020-05-20] MEDS: DIVALPROEX SODIUM 500 MG TABLET E.C. PO SCH ×2 (09:32→21:11)
[2020-05-20] MEDS: RALTEGRAVIR POTASSIUM 400 MG TAB PO SCH ×2 (09:33→21:11)
[2020-05-20] MEDS: ESCITALOPRAM OXALATE 10 MG TABLET PO SCH (09:33)
[2020-05-20] MEDS: NICOTINE 14 MG/24 HOURS TOPICAL PATCH TD SCH (09:33)
[2020-05-20] MEDS: PRENATAL VITAMINS W/ FOLIC ACID TABLET (FP) PO SCH (09:33)
[2020-05-20] MEDS: QUEtiapine FUMARATE 25 MG TABLET PO SCH (09:33)
[2020-05-20] MEDS: HYDROCHLOROTHIAZIDE 25 MG TABLET (FP) PO SCH (09:41)
--- NOTE | 2020-05-20 18:55 | PN ---
[facility] Progress Note Note: Psychiatry Attending's note : At ADRIANA Frances's request : order for seroquel 25 mg po bid Changed to 25 mg po @ 10 am + 4 pm. With patient's reported consent.
[2020-05-20] MEDS: THIAMINE HCL 100 MG TABLET (FP) PO SCH (21:11)
[2020-05-20] MEDS: QUEtiapine FUMARATE 300 MG TABLET PO SCH (21:11)
[2020-05-20] MEDS: MELATONIN 5 MG TABLETS PO SCH (21:11)
[2020-05-20] MEDS: EMTRICITABINE/TENOFOV ALAFENAM (DESCOVY) TABLET PO SCH (21:12)
[2020-05-21] MEDS: HYDROCHLOROTHIAZIDE 25 MG TABLET (FP) PO SCH (09:45)
[2020-05-21] MEDS: RALTEGRAVIR POTASSIUM 400 MG TAB PO SCH ×2 (09:45→21:27)
[2020-05-21] MEDS: DIVALPROEX SODIUM 500 MG TABLET E.C. PO SCH ×2 (09:45→21:27)
[2020-05-21] MEDS: SULFAMETHOXAZOLE/TRIMETHOPRIM 800MG/160MG D.S. TABLET PO SCH (09:45)
[2020-05-21] MEDS: QUEtiapine FUMARATE 25 MG TABLET PO SCH ×2 (09:46→18:09)
[2020-05-21] MEDS: NICOTINE 14 MG/24 HOURS TOPICAL PATCH TD SCH (09:46)
[2020-05-21] MEDS: ESCITALOPRAM OXALATE 10 MG TABLET PO SCH (09:46)
[2020-05-21] MEDS: PRENATAL VITAMINS W/ FOLIC ACID TABLET (FP) PO SCH (09:46)
[2020-05-21] MEDS: THIAMINE HCL 100 MG TABLET (FP) PO SCH (21:27)
[2020-05-21] MEDS: MELATONIN 5 MG TABLETS PO SCH (21:27)
[2020-05-21] MEDS: QUEtiapine FUMARATE 300 MG TABLET PO SCH (21:27)
[2020-05-21] MEDS: EMTRICITABINE/TENOFOV ALAFENAM (DESCOVY) TABLET PO SCH (21:28)
[2020-05-22] MEDS: NICOTINE 14 MG/24 HOURS TOPICAL PATCH TD SCH (10:01)
[2020-05-22] MEDS: ESCITALOPRAM OXALATE 10 MG TABLET PO SCH (10:02)
[2020-05-22] MEDS: HYDROCHLOROTHIAZIDE 25 MG TABLET (FP) PO SCH (10:02)
[2020-05-22] MEDS: PRENATAL VITAMINS W/ FOLIC ACID TABLET (FP) PO SCH (10:02)
[2020-05-22] MEDS: RALTEGRAVIR POTASSIUM 400 MG TAB PO SCH ×2 (10:02→21:27)
[2020-05-22] MEDS: DIVALPROEX SODIUM 500 MG TABLET E.C. PO SCH ×2 (10:02→21:27)
[2020-05-22] MEDS: SULFAMETHOXAZOLE/TRIMETHOPRIM 800MG/160MG D.S. TABLET PO SCH (10:02)
[2020-05-22] MEDS: QUEtiapine FUMARATE 25 MG TABLET PO SCH ×2 (10:03→17:37)
[2020-05-22] MEDS ORDERED: PT OWN MED DRAWER 7, Y5N ONE ×3 (10:09→21:51)
--- NOTE | 2020-05-22 13:17 | PN ---
[facility] Progress Note Note: Patient wants to talk about syphilis results. Also wants to talk about lower leg swelling. HPI: Patient reports receiving 2.4 million units of PCN for syphilis treatment. His RPR is now 1:1. Patient has lower extremity edema related to drug use. Presently on HCTZ and compression stockings for the swelling. P/E: General: no apparent distress SKIN: clear, no rashes MSK: full weight bearing, steady gait Extremities: 1+ edema, lower extremities, +pulses throughout Neuro: No cognitive deficits. CN 2-12 intact, Laboratory Last Values WBC 2.4 K/mm3 (4.0-10.0) L 05/13/20 08:15 RBC 3.85 M/mm3 (4.00-5.60) L 05/13/20 08:15 Hgb 11.1 GM/dL (11.7-16.9) L 05/13/20 08:15 Hct 34.6 % (35.4-49) L 05/13/20 08:15 MCV 90.0 fl (80-96) 05/13/20 08:15 MCH 28.9 pg (25.7-33.7) 05/13/20 08:15 MCHC 32.1 g/dl (32.0-35.9) 05/13/20 08:15 RDW 14.7 % (11.9-15.9) 05/13/20 08:15 Plt Count 116 K/MM3 (134-434) L 05/13/20 08:15 MPV 11.1 fl (7.5-11.1) 05/13/20 08:15 PT with INR 10.70 SEC (9.7-13.0) 05/13/20 08:15 INR 0.91 (0.83-1.09) 05/13/20 08:15 Sodium 143 mmol/L (136-145) 05/13/20 08:15 Potassium 3.9 mmol/L (3.5-5.1) 05/13/20 08:15 Chloride 112 mmol/L (98-107) H 05/13/20 08:15 Carbon Dioxide 26 mmol/L (21-32) 05/13/20 08:15 Anion Gap 5 MMOL/L (8-16) L 05/13/20 08:15 BUN 14.9 mg/dL (7-18) 05/13/20 08:15 Creatinine 1.0 mg/dL (0.55-1.3) 05/13/20 08:15 Est GFR (CKD-EPI)AfAm 99.15 05/13/20 08:15 Est GFR (CKD-EPI)NonAf 85.55 05/13/20 08:15 Random Glucose 94 mg/dL (74-106) 05/13/20 08:15 Calcium 8.6 mg/dL (8.5-10.1) 05/13/20 08:15 Total Bilirubin 0.4 mg/dL (0.2-1) 05/13/20 08:15 AST 33 U/L (15-37) 05/13/20 08:15 ALT 36 U/L (13-61) 05/13/20 08:15 Alkaline Phosphatase 86 U/L (45-117) 05/13/20 08:15 Total Protein 8.4 g/dl (6.4-8.2) H 05/13/20 08:15 Albumin 2.8 g/dl (3.4-5.0) L 05/13/20 08:15 Valproic Acid 9.7 ug/mL (50-100) L 05/12/20 09:00 Syphilis Serology Reactive (NONREACTIVE) A* 05/11/20 08:00 RPR Titer Reactive 1:1 (NONREACTIVE) H 05/11/20 08:00 COVID-19 (TRISTA) Not detected (Not Detected) 05/11/20 13:15 Vital Signs Period Temp Pulse Resp BP Sys/Arias Pulse Ox Last 24 Hr 97.7 F 97-100 18 97-128/56-84 95-97 A/P: Syphilis:treatment complete as indicated by an RPR of 1:1. No further treatment needed Lower Extremity edema: Continue present treatment. Encouraged to walk, elevate legs at rest. Continue hydration
[2020-05-22] MEDS: THIAMINE HCL 100 MG TABLET (FP) PO SCH (21:26)
[2020-05-22] MEDS: MELATONIN 5 MG TABLETS PO SCH (21:26)
[2020-05-22] MEDS: QUEtiapine FUMARATE 300 MG TABLET PO SCH (21:27)
[2020-05-22] MEDS: EMTRICITABINE/TENOFOV ALAFENAM (DESCOVY) TABLET PO SCH (21:29)
[2020-05-23] MEDS: DIVALPROEX SODIUM 500 MG TABLET E.C. PO SCH ×2 (09:52→21:06)
[2020-05-23] MEDS: PRENATAL VITAMINS W/ FOLIC ACID TABLET (FP) PO SCH (09:52)
[2020-05-23] MEDS: SULFAMETHOXAZOLE/TRIMETHOPRIM 800MG/160MG D.S. TABLET PO SCH (09:52)
[2020-05-23] MEDS: HYDROCHLOROTHIAZIDE 25 MG TABLET (FP) PO SCH (09:52)
[2020-05-23] MEDS: QUEtiapine FUMARATE 25 MG TABLET PO SCH ×2 (09:53→17:37)
[2020-05-23] MEDS: NICOTINE 14 MG/24 HOURS TOPICAL PATCH TD SCH (09:53)
[2020-05-23] MEDS: ESCITALOPRAM OXALATE 10 MG TABLET PO SCH (09:53)
[2020-05-23] MEDS: RALTEGRAVIR POTASSIUM 400 MG TAB PO SCH ×2 (09:53→21:06)
[2020-05-23] MEDS: MELATONIN 5 MG TABLETS PO SCH (21:06)
[2020-05-23] MEDS: THIAMINE HCL 100 MG TABLET (FP) PO SCH (21:06)
[2020-05-23] MEDS: QUEtiapine FUMARATE 300 MG TABLET PO SCH (21:06)
[2020-05-23] MEDS: EMTRICITABINE/TENOFOV ALAFENAM (DESCOVY) TABLET PO SCH (21:07)
[2020-05-24] MEDS: SULFAMETHOXAZOLE/TRIMETHOPRIM 800MG/160MG D.S. TABLET PO SCH (09:13)
[2020-05-24] MEDS: DIVALPROEX SODIUM 500 MG TABLET E.C. PO SCH ×2 (09:13→21:37)
[2020-05-24] MEDS: HYDROCHLOROTHIAZIDE 25 MG TABLET (FP) PO SCH (09:13)
[2020-05-24] MEDS: ESCITALOPRAM OXALATE 10 MG TABLET PO SCH (09:14)
[2020-05-24] MEDS: RALTEGRAVIR POTASSIUM 400 MG TAB PO SCH ×2 (09:14→21:37)
[2020-05-24] MEDS: QUEtiapine FUMARATE 25 MG TABLET PO SCH ×2 (09:14→21:33)
[2020-05-24] MEDS: NICOTINE 14 MG/24 HOURS TOPICAL PATCH TD SCH (09:14)
[2020-05-24] MEDS: PRENATAL VITAMINS W/ FOLIC ACID TABLET (FP) PO SCH (09:14)
[2020-05-24] MEDS ORDERED: PT OWN MED DRAWER 7, Y5N ONE ×2 (20:48→22:18)
[2020-05-24] MEDS: EMTRICITABINE/TENOFOV ALAFENAM (DESCOVY) TABLET PO SCH (21:37)
[2020-05-24] MEDS: QUEtiapine FUMARATE 300 MG TABLET PO SCH (21:37)
[2020-05-24] MEDS: THIAMINE HCL 100 MG TABLET (FP) PO SCH (21:37)
[2020-05-24] MEDS: MELATONIN 5 MG TABLETS PO SCH (21:38)
[2020-05-25] MEDS ORDERED: PT OWN MED DRAWER 7, Y5N ONE ×3 (08:21→22:08)
[2020-05-25] MEDS: RALTEGRAVIR POTASSIUM 400 MG TAB PO SCH ×2 (09:28→21:58)
[2020-05-25] MEDS: SULFAMETHOXAZOLE/TRIMETHOPRIM 800MG/160MG D.S. TABLET PO SCH (09:28)
[2020-05-25] MEDS: DIVALPROEX SODIUM 500 MG TABLET E.C. PO SCH ×2 (09:28→21:58)
[2020-05-25] MEDS: HYDROCHLOROTHIAZIDE 25 MG TABLET (FP) PO SCH (09:28)
[2020-05-25] MEDS: PRENATAL VITAMINS W/ FOLIC ACID TABLET (FP) PO SCH (09:29)
[2020-05-25] MEDS: NICOTINE 14 MG/24 HOURS TOPICAL PATCH TD SCH (09:29)
[2020-05-25] MEDS: ESCITALOPRAM OXALATE 10 MG TABLET PO SCH (09:29)
[2020-05-25] MEDS: QUEtiapine FUMARATE 25 MG TABLET PO SCH ×2 (09:30→17:01)
[2020-05-25] MEDS: THIAMINE HCL 100 MG TABLET (FP) PO SCH (21:58)
[2020-05-25] MEDS: EMTRICITABINE/TENOFOV ALAFENAM (DESCOVY) TABLET PO SCH (21:58)
[2020-05-25] MEDS: QUEtiapine FUMARATE 300 MG TABLET PO SCH (21:58)
[2020-05-25] MEDS: MELATONIN 5 MG TABLETS PO SCH (21:59)
[2020-05-26] MEDS ORDERED: PT OWN MED DRAWER 7, Y5N ONE ×2 (09:03→19:46)
[2020-05-26] MEDS: PRENATAL VITAMINS W/ FOLIC ACID TABLET (FP) PO SCH (09:48)
[2020-05-26] MEDS: DIVALPROEX SODIUM 500 MG TABLET E.C. PO SCH ×2 (09:48→21:19)
[2020-05-26] MEDS: NICOTINE 14 MG/24 HOURS TOPICAL PATCH TD SCH (09:48)
[2020-05-26] MEDS: RALTEGRAVIR POTASSIUM 400 MG TAB PO SCH ×2 (09:49→21:19)
[2020-05-26] MEDS: SULFAMETHOXAZOLE/TRIMETHOPRIM 800MG/160MG D.S. TABLET PO SCH (09:49)
[2020-05-26] MEDS: QUEtiapine FUMARATE 25 MG TABLET PO SCH ×2 (09:49→17:01)
[2020-05-26] MEDS: ESCITALOPRAM OXALATE 10 MG TABLET PO SCH (09:49)
[2020-05-26] MEDS: HYDROCHLOROTHIAZIDE 25 MG TABLET (FP) PO SCH (09:49)
[2020-05-26] MEDS: THIAMINE HCL 100 MG TABLET (FP) PO SCH (21:19)
[2020-05-26] MEDS: MELATONIN 5 MG TABLETS PO SCH (21:19)
[2020-05-26] MEDS: QUEtiapine FUMARATE 300 MG TABLET PO SCH (21:19)
[2020-05-26] MEDS: EMTRICITABINE/TENOFOV ALAFENAM (DESCOVY) TABLET PO SCH (21:20)
[2020-05-27 07:07] VITALS: TEMP 97.8
[2020-05-27] MEDS ORDERED: PT OWN MED DRAWER 7, Y5N ONE ×2 (07:41→21:18)
[2020-05-27] MEDS: HYDROCHLOROTHIAZIDE 25 MG TABLET (FP) PO SCH (09:52)
[2020-05-27] MEDS: DIVALPROEX SODIUM 500 MG TABLET E.C. PO SCH ×2 (09:52→21:16)
[2020-05-27] MEDS: SULFAMETHOXAZOLE/TRIMETHOPRIM 800MG/160MG D.S. TABLET PO SCH (09:52)
[2020-05-27] MEDS: RALTEGRAVIR POTASSIUM 400 MG TAB PO SCH ×2 (09:53→21:16)
[2020-05-27] MEDS: ESCITALOPRAM OXALATE 10 MG TABLET PO SCH (09:53)
[2020-05-27] MEDS: NICOTINE 14 MG/24 HOURS TOPICAL PATCH TD SCH (09:53)
[2020-05-27] MEDS: PRENATAL VITAMINS W/ FOLIC ACID TABLET (FP) PO SCH (09:53)
[2020-05-27] MEDS: QUEtiapine FUMARATE 25 MG TABLET PO SCH ×2 (09:54→16:59)
--- NOTE | 2020-05-27 11:09 | PN ---
[facility] Progress Note Note: Patient is scheduled for discharge tomorrow. Scripts for 30 days supply of medications(Lexapro 10 mg/day, Depakote 500 mg/bid, Seroquel 25 mg/bid & 300 mg/hs) will be electronically transmitted to [facility], [address] [place], [place] [id number]
[2020-05-27] MEDS: MELATONIN 5 MG TABLETS PO SCH (21:16)
[2020-05-27] MEDS: QUEtiapine FUMARATE 300 MG TABLET PO SCH (21:16)
[2020-05-27] MEDS: THIAMINE HCL 100 MG TABLET (FP) PO SCH (21:16)
[2020-05-27] MEDS: EMTRICITABINE/TENOFOV ALAFENAM (DESCOVY) TABLET PO SCH (21:19)
[2020-05-28 07:18] VITALS: BP 112/72; PULSE 98
--- NOTE | 2020-05-28 08:21 | DS ---
[facility] Rehab Discharge Summary - [facility] Rehab Discharge Summary Admission Date: 05/11/20 Discharge Date: 05/28/20 - History Present History: Alcohol dependence, Cocaine dependence Pertinent Past History: 54 year old man presents for alcohol use disorder. He reports last detox was in 2015 in [place]. He denies seizures but reports blackouts, last episode about 3 weeks ago. - Discharge Physical Exam Vital Signs: Vital Signs Temperature 97.8 F 05/28/20 07:17 Pulse Rate 98 H 05/28/20 07:17 Respiratory Rate 16 05/28/20 07:17 Blood Pressure 112/72 05/28/20 07:17 O2 Sat by Pulse Oximetry (%) 98 05/28/20 07:17 Pertinent Admission Physical Exam Findings: Physical General Appearance: No Apparent Distress HEENTM: Normocephalic,TINA Respiratory: No Respiratory Distress, No Accessory Muscle Use Neck: Supple Cardiology: S1, S2 Abdominal: +Bowel Sounds, Non Tender, Soft Musculoskeletal: full range of Motion, Gait Steady, Neurological: parboiler II-XII NML intact, - Treatment Discharge Condition: Outpatient referral accepted (Patient will go to [facility] at [facility]. Medically stable for discharge.) Hospital Course: Patient attended groups, had 1:1 with his counselor, and was seen by the Psychiatric service. He was adherent to his medication regimen and treatment plan. He was seen by medical to explain the syphilis results, he understood the explanation. - Medication Discharge Medications: Ambulatory Orders Divalproex [Depakote -] 500 mg PO BID 05/11/20 Mirtazapine [Remeron -] 15 mg PO DAILY 05/11/20 Quetiapine Fumarate [Seroquel -] 25 mg PO BID 05/11/20 traZODone HCL [Trazodone HCl] 100 mg PO HS 05/11/20 Amlodipine Besylate [Norvasc -] 5 mg PO DAILY #30 tablet 05/27/20 Divalproex [Depakote -] 500 mg PO BID #60 tablet.ec 05/27/20 Emtricitabine/Tenofov Alafenam [Descovy 200-25 mg Tablet (Nf)] 1 each PO DAILY #30 tablet 05/27/20 Escitalopram Oxalate [Lexapro -] 10 mg PO DAILY #30 tablet 05/27/20 Quetiapine Fumarate [Seroquel -] 25 mg PO BID@1000,1600 #60 tablet 05/27/20 Quetiapine Fumarate [Seroquel -] 300 mg PO HS #30 tablet 05/27/20 Raltegravir Potassium [Isentress] 400 mg PO BID #60 tablet 05/27/20 Sulfamethoxazole/Trimethoprim [Bactrim DS -] 1 tab PO DAILY #30 tablet 05/27/20 - Medication-Assisted Treatment (MAT) Medication-Assisted Treatment (MAT): No - Discharge Instructions Diet, activity, other medical instructions: Diet: as tolerated Activity: as tolerated Other medical instructions: Please follow up with your aftercare referral. - Diagnosis (1) Alcohol dependence with withdrawal Current Visit: Yes Status: Chronic Qualifiers: Complication of substance-induced condition: uncomplicated Qualified Code(s): F10.230 - Alcohol dependence with withdrawal, uncomplicated (2) Cocaine dependence Current Visit: Yes Status: Chronic - Follow-up Referral Minutes to complete discharge: 15 - AMA Did Patient Leave Against Medical Advice: No
[2020-05-28] MEDS: NICOTINE 14 MG/24 HOURS TOPICAL PATCH TD SCH (09:06)
[2020-05-28] MEDS: HYDROCHLOROTHIAZIDE 25 MG TABLET (FP) PO SCH (09:06)
[2020-05-28] MEDS: PRENATAL VITAMINS W/ FOLIC ACID TABLET (FP) PO SCH (09:06)
[2020-05-28] MEDS: RALTEGRAVIR POTASSIUM 400 MG TAB PO SCH (09:06)
[2020-05-28] MEDS: ESCITALOPRAM OXALATE 10 MG TABLET PO SCH (09:06)
[2020-05-28] MEDS: SULFAMETHOXAZOLE/TRIMETHOPRIM 800MG/160MG D.S. TABLET PO SCH (09:06)
[2020-05-28] MEDS: DIVALPROEX SODIUM 500 MG TABLET E.C. PO SCH (09:06)
[2020-05-28] MEDS: QUEtiapine FUMARATE 25 MG TABLET PO SCH (09:07)
== END 2020-05-28 09:26 | disposition home or self-care (01) | DRG 895 ==
LOC: YASAS 13:12 → Y5N DETOX 14:47 → Y3E 05-15 10:56
PROVIDERS: ADMIT Allergy & Immunology; ATTEND Allergy & Immunology
PROC: HZ42ZZZ Group Counseling for Substance Abuse Treatment, Cognitive-Behavioral (ICD-10-PCS; principal; 2020-05-11)
DX: F10.20 Alcohol dependence, uncomplicated (principal); F14.20 Cocaine dependence, uncomplicated; F19.280 Other psychoactive substance dependence with psychoactive substance-induced anxiety disorder; F19.282 Other psychoactive substance dependence with psychoactive substance-induced sleep disorder; F17.210 Nicotine dependence, cigarettes, uncomplicated; F43.10 Post-traumatic stress disorder, unspecified; F31.9 Bipolar disorder, unspecified; F90.9 Attention-deficit hyperactivity disorder, unspecified type; Z21 Asymptomatic human immunodeficiency virus [HIV] infection status; I10 Essential (primary) hypertension; J45.909 Unspecified asthma, uncomplicated; R60.0 Localized edema; R79.89 Other specified abnormal findings of blood chemistry; A53.9 Syphilis, unspecified; Z62.810 Personal history of physical and sexual abuse in childhood; Z91.410 Personal history of adult physical and sexual abuse; Z91.5 Personal history of self-harm; Z91.010 Allergy to peanuts; Z91.013 Allergy to seafood
CPT/HCPCS: 36415; 80053; 80164; 85027; 85610; 86593; 86780; Q0162; U0003

== ENCOUNTER 2021-03-01 09:13 | Inpatient (IN) | payer OTHER ==
[2021-03-01 10:15] VITALS: BMI 24.4
[2021-03-01] MEDS ORDERED: guaiFENesin 200 MG/10 ML 10 ML UNIT-DOSE CUPS PO PRN ×2 (10:32→20:28)
[2021-03-01] MEDS ORDERED: ACETAMINOPHEN 325 MG TABLET (FP) PO PRN ×3 (10:32→20:28)
[2021-03-01] MEDS ORDERED: IBUPROFEN 400 MG TABLET (FP) PO PRN ×2 (10:32→20:28)
[2021-03-01] MEDS ORDERED: P-EPHED 60MG/TRIPROLIDI 2.5MG TABLET PO PRN ×2 (10:32→20:28)
[2021-03-01] MEDS ORDERED: MAGNESIUM HYDROX 2400MG/30ML ORAL SUSPENSION 30 ML CUP PO PRN ×2 (10:32→20:28)
[2021-03-01] MEDS ORDERED: MAG HYDROX/AL HYDROX/SIMETH 30 ML UNIT-DOSE CUP PO PRN ×2 (10:32→20:28)
[2021-03-01] MEDS ORDERED: MAGNESIUM CITRATE 300 ML BOTTLE PO PRN ×2 (10:32→20:28)
[2021-03-01] MEDS ORDERED: LOPERAMIDE HCL 2 MG CAPSULE PO PRN (10:32)
[2021-03-01] MEDS ORDERED: NICOTINE POLACRILEX 2 MG GUM BUC PRN ×2 (10:32→20:28)
[2021-03-01] MEDS: hydrOXYzine PAMOATE 25 MG CAPSULE (FP) PO SCH ×2 (15:25→23:49)
[2021-03-01] MEDS ORDERED: METHOCARBAMOL 500 MG TABLET PO PRN (20:28)
[2021-03-01] MEDS ORDERED: BISMUTH SUBSALICYLATE 524 MG/30 ML UD PO PRN (20:28)
[2021-03-01] MEDS ORDERED: ONDANSETRON *ODT* 4 MG TABLET SL PRN (20:28)
[2021-03-01] MEDS ORDERED: MENTHOL/PHENOL 1 EACH UD MM PRN (20:28)
[2021-03-01] MEDS ORDERED: LORazepam 1 MG TABLET PO PRN (20:28)
[2021-03-01] MEDS ORDERED: DICYCLOMINE HCL 10 MG CAPSULE PO PRN (20:28)
[2021-03-01] MEDS ORDERED: TETANUS AND DIPHTHERIA TOXOID 0.5 ML DISP.SYRIN IM ONE (20:34)
[2021-03-01] MEDS ORDERED: LORazepam 1 MG TABLET ONE (20:36)
[2021-03-01] MEDS ORDERED: TETANUS, DIPHTHERIA TOX,ADULT 0.5 ML VIAL IM ONE (22:00)
[2021-03-01] MEDS ORDERED: MELATONIN 5 MG TABLETS PO SCH (22:00)
[2021-03-01] MEDS ORDERED: THIAMINE HCL 100 MG TABLET (FP) PO SCH (22:00)
[2021-03-01] MEDS: MELATONIN 5 MG TABLETS PO SCH (23:47)
[2021-03-01] MEDS: LORazepam 2 MG TABLET PO SCH (23:50)
[2021-03-01] MEDS: CEPHALEXIN MONOHYDRATE 500 MG CAPSULE (UD) PO SCH (23:52)
[2021-03-01] MEDS: THIAMINE HCL 100 MG TABLET (FP) PO SCH (23:52)
[2021-03-02 06:06] LABS: SARS-CoV-2 NAA Not Detected (Not Detected)
[2021-03-02] MEDS: LORazepam 2 MG TABLET PO SCH ×4 (06:37→22:08)
[2021-03-02] MEDS: CEPHALEXIN MONOHYDRATE 500 MG CAPSULE (UD) PO SCH ×4 (06:37→23:00)
[2021-03-02] MEDS: hydrOXYzine PAMOATE 25 MG CAPSULE (FP) PO SCH ×6 (06:38→22:10)
[2021-03-02] MEDS: PRENATAL VITAMINS W/ FOLIC ACID TABLET (FP) PO SCH (09:31)
[2021-03-02] MEDS: amLODIPine BESYLATE 5 MG TABLET (FP) PO SCH (09:31)
[2021-03-02] MEDS: BACITRACIN 0.9 GM PACKET TP SCH (09:31)
[2021-03-02] MEDS: NICOTINE 21 MG/24 HOURS TOPICAL PATCH TD SCH (09:31)
[2021-03-02] MEDS ORDERED: PRENATAL VITAMINS W/ FOLIC ACID TABLET (FP) PO SCH (10:00)
[2021-03-02] MEDS ORDERED: NICOTINE 7 MG/24 HOURS TOPICAL PATCH TD SCH (10:00)
[2021-03-02 10:05] LABS: HEMATOCRIT 40.6 % (35.4-49); HEMOGLOBIN 13.5 GM/dL (11.7-16.9); MCHC 33.2 g/dl (32.0-35.9); MEAN CELL VOLUME 90.1 fl (80-96); MEAN PLT VOLUME 10.1 fl (7.5-11.1); PLATELET COUNT 117 K/MM3 (134-434); RBC 4.51 M/mm3 (4.00-5.60); RDW 15.2 % (11.9-15.9)
[2021-03-02 10:43] LABS: BILIRUBIN,TOTAL 0.2 mg/dL (0.2-1)
[2021-03-02 10:44] LABS: TOT PROT 8.3 g/dl (6.4-8.2)
[2021-03-02 10:45] LABS: ALBUMIN 3.2 g/dl (3.4-5.0); BLOOD UREA NITROGEN 20.6 mg/dL (7-18)
[2021-03-02 10:47] LABS: CALCIUM 8.2 mg/dL (8.5-10.1)
[2021-03-02 10:48] LABS: CREATININE 1.1 mg/dL (0.55-1.3)
[2021-03-02 10:53] LABS: WHITE BLOOD COUNT 1.8 K/mm3 (4.0-10.0)
[2021-03-02] MEDS: THIAMINE HCL 100 MG TABLET (FP) PO SCH (22:08)
[2021-03-02] MEDS: MELATONIN 5 MG TABLETS PO SCH (22:09)
[2021-03-03] MEDS: LORazepam 1 MG TABLET PO SCH ×4 (05:24→22:19)
[2021-03-03] MEDS: CEPHALEXIN MONOHYDRATE 500 MG CAPSULE (UD) PO SCH ×4 (05:24→23:03)
[2021-03-03] MEDS: hydrOXYzine PAMOATE 25 MG CAPSULE (FP) PO SCH ×5 (05:24→22:21)
[2021-03-03] MEDS ORDERED: EMTRICITABINE/TENOFOV ALAFENAM (DESCOVY) TABLET PO SCH (10:00)
[2021-03-03 10:01] LABS: BASO % 0.4 % (0-2.0); EOS % 1.5 % (0-4.5); HEMATOCRIT 41.7 % (35.4-49); HEMOGLOBIN 13.7 GM/dL (11.7-16.9); LYMPH % 66.3 % (8-40); MCH 29.6 pg (25.7-33.7); MCHC 32.8 g/dl (32.0-35.9); MEAN CELL VOLUME 90.3 fl (80-96); MEAN PLT VOLUME 10.9 fl (7.5-11.1); MONO % 13.8 % (3.8-10.2); PLATELET COUNT 123 K/MM3 (134-434); RBC 4.62 M/mm3 (4.00-5.60); RDW 15.1 % (11.9-15.9); WHITE BLOOD COUNT 2.2 K/mm3 (4.0-10.0)
[2021-03-03 10:23] LABS: INR 0.91 (0.83-1.09); PROTHROMBIN TIME (PATIENT) 11.2 SEC (9.7-13.0)
[2021-03-03 10:25] LABS: CALCIUM 9.1 mg/dL (8.5-10.1)
[2021-03-03 10:26] LABS: ALBUMIN 3.3 g/dl (3.4-5.0); BLOOD UREA NITROGEN 15.3 mg/dL (7-18)
[2021-03-03 10:29] LABS: CREATININE 0.9 mg/dL (0.55-1.3)
[2021-03-03 10:30] LABS: BILIRUBIN,TOTAL 0.6 mg/dL (0.2-1); TOT PROT 8.4 g/dl (6.4-8.2)
[2021-03-03] MEDS ORDERED: MASKS NR ONE (10:36)
[2021-03-03] MEDS: amLODIPine BESYLATE 5 MG TABLET (FP) PO SCH (10:39)
[2021-03-03] MEDS: PRENATAL VITAMINS W/ FOLIC ACID TABLET (FP) PO SCH (10:39)
[2021-03-03] MEDS: BACITRACIN 0.9 GM PACKET TP SCH (10:39)
[2021-03-03] MEDS: NICOTINE 21 MG/24 HOURS TOPICAL PATCH TD SCH (10:42)
[2021-03-03 11:05] LABS: ANISOCYTOSIS 0; HELMET CELLS 0; HOWELL-JOLLY BODIES 0; MACROCYTOSIS 0; OVALOCYTE 0; PLATELET ESTIMATE DECREASED; ROULEAU 0; SICKELED CELLS 0; TARGET CELLS 0; TEAR DROP CELLS 0; TOXIC GRANULATION 0
[2021-03-03] MEDS: SULFAMETHOXAZOLE/TRIMETHOPRIM 800MG/160MG D.S. TABLET PO SCH (11:38)
[2021-03-03] MEDS: RALTEGRAVIR POTASSIUM 400 MG TAB PO SCH ×2 (11:39→22:21)
[2021-03-03] MEDS: LACTULOSE 20 GM/30 ML UDC (FOR ORAL USE ONLY) PO SCH ×2 (13:11→22:22)
[2021-03-03] MEDS: CITALOPRAM HYDROBROMIDE 10 MG TABLET PO SCH (14:36)
[2021-03-03] MEDS: THIAMINE HCL 100 MG TABLET (FP) PO SCH (22:19)
[2021-03-03] MEDS: QUEtiapine FUMARATE 200 MG TABLET PO SCH (22:19)
[2021-03-03] MEDS: EMTRICITABINE/TENOFOV ALAFENAM (DESCOVY) TABLET PO SCH (22:20)
[2021-03-03] MEDS: MELATONIN 5 MG TABLETS PO SCH (22:24)
[2021-03-04] MEDS ORDERED: LORazepam 0.5 MG TABLET PO PRN
[2021-03-04] MEDS: LACTULOSE 20 GM/30 ML UDC (FOR ORAL USE ONLY) PO SCH ×3 (05:46→22:02)
[2021-03-04] MEDS: hydrOXYzine PAMOATE 25 MG CAPSULE (FP) PO SCH ×5 (05:46→22:00)
[2021-03-04] MEDS: LORazepam 0.5 MG TABLET PO SCH ×4 (05:47→21:59)
[2021-03-04] MEDS: CEPHALEXIN MONOHYDRATE 500 MG CAPSULE (UD) PO SCH ×4 (05:47→23:07)
[2021-03-04] MEDS: BACITRACIN 0.9 GM PACKET TP SCH (10:29)
[2021-03-04] MEDS: SULFAMETHOXAZOLE/TRIMETHOPRIM 800MG/160MG D.S. TABLET PO SCH (10:29)
[2021-03-04] MEDS: amLODIPine BESYLATE 5 MG TABLET (FP) PO SCH (10:29)
[2021-03-04] MEDS: CITALOPRAM HYDROBROMIDE 10 MG TABLET PO SCH (10:29)
[2021-03-04] MEDS: NICOTINE 21 MG/24 HOURS TOPICAL PATCH TD SCH (10:29)
[2021-03-04] MEDS: PRENATAL VITAMINS W/ FOLIC ACID TABLET (FP) PO SCH (10:30)
[2021-03-04] MEDS: RALTEGRAVIR POTASSIUM 400 MG TAB PO SCH ×2 (10:30→22:01)
[2021-03-04 11:00] LABS: BASO % 0.3 % (0-2.0); EOS % 1.5 % (0-4.5); HEMATOCRIT 41.1 % (35.4-49); HEMOGLOBIN 13.6 GM/dL (11.7-16.9); LYMPH % 55.8 % (8-40); MCHC 32.9 g/dl (32.0-35.9); MEAN CELL VOLUME 91.1 fl (80-96); MEAN PLT VOLUME 11.7 fl (7.5-11.1); NEUT % 30.4 % (42.8-82.8); PLATELET COUNT 123 K/MM3 (134-434); RBC 4.52 M/mm3 (4.00-5.60); RDW 15.3 % (11.9-15.9); WHITE BLOOD COUNT 2.3 K/mm3 (4.0-10.0)
[2021-03-04] MEDS: EMTRICITABINE/TENOFOV ALAFENAM (DESCOVY) TABLET PO SCH ×2 (11:29→22:01)
[2021-03-04] MEDS: MELATONIN 5 MG TABLETS PO SCH (22:00)
[2021-03-04] MEDS: THIAMINE HCL 100 MG TABLET (FP) PO SCH (22:00)
[2021-03-04] MEDS: QUEtiapine FUMARATE 200 MG TABLET PO SCH (22:00)
[2021-03-05] MEDS ORDERED: LORazepam 0.5 MG TABLET PO ONE (05:00)
[2021-03-05] MEDS: LACTULOSE 20 GM/30 ML UDC (FOR ORAL USE ONLY) PO SCH ×3 (05:39→21:05)
[2021-03-05] MEDS: hydrOXYzine PAMOATE 25 MG CAPSULE (FP) PO SCH ×5 (05:40→21:08)
[2021-03-05] MEDS: CEPHALEXIN MONOHYDRATE 500 MG CAPSULE (UD) PO SCH ×3 (05:40→17:26)
[2021-03-05 07:27] LABS: SARS-CoV-2 NAA Not Detected (Not Detected)
[2021-03-05] MEDS: amLODIPine BESYLATE 5 MG TABLET (FP) PO SCH (10:49)
[2021-03-05] MEDS: BACITRACIN 0.9 GM PACKET TP SCH (10:49)
[2021-03-05] MEDS: PRENATAL VITAMINS W/ FOLIC ACID TABLET (FP) PO SCH (10:49)
[2021-03-05] MEDS: SULFAMETHOXAZOLE/TRIMETHOPRIM 800MG/160MG D.S. TABLET PO SCH (10:49)
[2021-03-05] MEDS: CITALOPRAM HYDROBROMIDE 10 MG TABLET PO SCH (10:49)
[2021-03-05] MEDS: RALTEGRAVIR POTASSIUM 400 MG TAB PO SCH ×2 (10:50→21:06)
[2021-03-05] MEDS: NICOTINE 21 MG/24 HOURS TOPICAL PATCH TD SCH (10:51)
[2021-03-05] MEDS ORDERED: PT OWN MED DRAWER 7, Y5N ONE (20:23)
[2021-03-05] MEDS: QUEtiapine FUMARATE 200 MG TABLET PO SCH (21:08)
[2021-03-05] MEDS: THIAMINE HCL 100 MG TABLET (FP) PO SCH (21:09)
[2021-03-05] MEDS: MELATONIN 5 MG TABLETS PO SCH (21:09)
[2021-03-05] MEDS: EMTRICITABINE/TENOFOV ALAFENAM (DESCOVY) TABLET PO SCH (21:10)
[2021-03-06] MEDS: CEPHALEXIN MONOHYDRATE 500 MG CAPSULE (UD) PO SCH ×5 (00:17→23:59)
[2021-03-06] MEDS: hydrOXYzine PAMOATE 25 MG CAPSULE (FP) PO SCH ×5 (07:09→22:01)
[2021-03-06] MEDS: LACTULOSE 20 GM/30 ML UDC (FOR ORAL USE ONLY) PO SCH ×3 (07:09→22:00)
[2021-03-06] MEDS: SULFAMETHOXAZOLE/TRIMETHOPRIM 800MG/160MG D.S. TABLET PO SCH (09:43)
[2021-03-06] MEDS: BACITRACIN 0.9 GM PACKET TP SCH (09:43)
[2021-03-06] MEDS: PRENATAL VITAMINS W/ FOLIC ACID TABLET (FP) PO SCH (09:43)
[2021-03-06] MEDS: CITALOPRAM HYDROBROMIDE 10 MG TABLET PO SCH (09:43)
[2021-03-06] MEDS: RALTEGRAVIR POTASSIUM 400 MG TAB PO SCH ×2 (09:45→22:01)
[2021-03-06] MEDS: amLODIPine BESYLATE 5 MG TABLET (FP) PO SCH (09:45)
[2021-03-06] MEDS: NICOTINE 21 MG/24 HOURS TOPICAL PATCH TD SCH (11:02)
[2021-03-06] MEDS ORDERED: FLU VACCINE (FLULAVAL) PF 60 MCG/0.5 ML SYRINGE 2020-2021 IM ONE (12:00)
[2021-03-06] MEDS ORDERED: PT OWN MED DRAWER 7, Y5N ONE ×2 (19:11→20:47)
[2021-03-06] MEDS: MELATONIN 5 MG TABLETS PO SCH (22:01)
[2021-03-06] MEDS: THIAMINE HCL 100 MG TABLET (FP) PO SCH (22:01)
[2021-03-06] MEDS: EMTRICITABINE/TENOFOV ALAFENAM (DESCOVY) TABLET PO SCH (22:01)
[2021-03-06] MEDS: QUEtiapine FUMARATE 200 MG TABLET PO SCH (22:01)
[2021-03-07] MEDS: CEPHALEXIN MONOHYDRATE 500 MG CAPSULE (UD) PO SCH ×3 (06:30→18:04)
[2021-03-07] MEDS: LACTULOSE 20 GM/30 ML UDC (FOR ORAL USE ONLY) PO SCH ×3 (06:30→21:57)
[2021-03-07] MEDS: hydrOXYzine PAMOATE 25 MG CAPSULE (FP) PO SCH ×4 (06:30→18:04)
[2021-03-07] MEDS: BACITRACIN 0.9 GM PACKET TP SCH (10:06)
[2021-03-07] MEDS: PRENATAL VITAMINS W/ FOLIC ACID TABLET (FP) PO SCH (10:07)
[2021-03-07] MEDS: NICOTINE 21 MG/24 HOURS TOPICAL PATCH TD SCH (10:07)
[2021-03-07] MEDS: SULFAMETHOXAZOLE/TRIMETHOPRIM 800MG/160MG D.S. TABLET PO SCH (10:07)
[2021-03-07] MEDS: amLODIPine BESYLATE 5 MG TABLET (FP) PO SCH (10:07)
[2021-03-07] MEDS: RALTEGRAVIR POTASSIUM 400 MG TAB PO SCH ×2 (11:26→21:59)
[2021-03-07] MEDS: CITALOPRAM HYDROBROMIDE 10 MG TABLET PO SCH (11:26)
[2021-03-07] MEDS ORDERED: PT OWN MED DRAWER 7, Y5N ONE (19:16)
[2021-03-07] MEDS: THIAMINE HCL 100 MG TABLET (FP) PO SCH (21:57)
[2021-03-07] MEDS: QUEtiapine FUMARATE 200 MG TABLET PO SCH (21:57)
[2021-03-07] MEDS: MELATONIN 5 MG TABLETS PO SCH (21:57)
[2021-03-07] MEDS: EMTRICITABINE/TENOFOV ALAFENAM (DESCOVY) TABLET PO SCH (21:59)
[2021-03-08] MEDS: CEPHALEXIN MONOHYDRATE 500 MG CAPSULE (UD) PO SCH ×5 (01:14→23:31)
[2021-03-08] MEDS: LACTULOSE 20 GM/30 ML UDC (FOR ORAL USE ONLY) PO SCH ×3 (06:01→21:13)
[2021-03-08] MEDS ORDERED: PT OWN MED DRAWER 7, Y5N ONE ×2 (08:32→19:16)
[2021-03-08] MEDS: PRENATAL VITAMINS W/ FOLIC ACID TABLET (FP) PO SCH (09:44)
[2021-03-08] MEDS: SULFAMETHOXAZOLE/TRIMETHOPRIM 800MG/160MG D.S. TABLET PO SCH (09:44)
[2021-03-08] MEDS: amLODIPine BESYLATE 5 MG TABLET (FP) PO SCH (09:44)
[2021-03-08] MEDS: BACITRACIN 0.9 GM PACKET TP SCH (09:45)
[2021-03-08] MEDS: CITALOPRAM HYDROBROMIDE 10 MG TABLET PO SCH (09:45)
[2021-03-08] MEDS: NICOTINE 21 MG/24 HOURS TOPICAL PATCH TD SCH (09:46)
[2021-03-08] MEDS: RALTEGRAVIR POTASSIUM 400 MG TAB PO SCH ×2 (09:46→21:13)
[2021-03-08] MEDS: MELATONIN 5 MG TABLETS PO SCH (21:13)
[2021-03-08] MEDS: THIAMINE HCL 100 MG TABLET (FP) PO SCH (21:13)
[2021-03-08] MEDS: EMTRICITABINE/TENOFOV ALAFENAM (DESCOVY) TABLET PO SCH (21:14)
[2021-03-08] MEDS: QUEtiapine FUMARATE 300 MG TABLET PO SCH (21:16)
[2021-03-09] MEDS: LACTULOSE 20 GM/30 ML UDC (FOR ORAL USE ONLY) PO SCH ×3 (06:22→21:32)
[2021-03-09] MEDS: PRENATAL VITAMINS W/ FOLIC ACID TABLET (FP) PO SCH (09:46)
[2021-03-09] MEDS: NICOTINE 21 MG/24 HOURS TOPICAL PATCH TD SCH (09:46)
[2021-03-09] MEDS: BACITRACIN 0.9 GM PACKET TP SCH (09:47)
[2021-03-09] MEDS: amLODIPine BESYLATE 5 MG TABLET (FP) PO SCH (09:47)
[2021-03-09] MEDS: SULFAMETHOXAZOLE/TRIMETHOPRIM 800MG/160MG D.S. TABLET PO SCH (09:47)
[2021-03-09] MEDS: CITALOPRAM HYDROBROMIDE 10 MG TABLET PO SCH (09:47)
[2021-03-09] MEDS: RALTEGRAVIR POTASSIUM 400 MG TAB PO SCH ×2 (09:48→21:33)
[2021-03-09] MEDS: MELATONIN 5 MG TABLETS PO SCH (21:32)
[2021-03-09] MEDS: QUEtiapine FUMARATE 300 MG TABLET PO SCH (21:32)
[2021-03-09] MEDS: THIAMINE HCL 100 MG TABLET (FP) PO SCH (21:32)
[2021-03-09] MEDS: EMTRICITABINE/TENOFOV ALAFENAM (DESCOVY) TABLET PO SCH (21:33)
[2021-03-10] MEDS: LACTULOSE 20 GM/30 ML UDC (FOR ORAL USE ONLY) PO SCH ×3 (06:06→21:34)
[2021-03-10] MEDS: amLODIPine BESYLATE 5 MG TABLET (FP) PO SCH (10:21)
[2021-03-10] MEDS: SULFAMETHOXAZOLE/TRIMETHOPRIM 800MG/160MG D.S. TABLET PO SCH (10:21)
[2021-03-10] MEDS: PRENATAL VITAMINS W/ FOLIC ACID TABLET (FP) PO SCH (10:21)
[2021-03-10] MEDS: BACITRACIN 0.9 GM PACKET TP SCH (10:21)
[2021-03-10] MEDS: NICOTINE 21 MG/24 HOURS TOPICAL PATCH TD SCH (10:22)
[2021-03-10] MEDS: CITALOPRAM HYDROBROMIDE 10 MG TABLET PO SCH (10:22)
[2021-03-10] MEDS: RALTEGRAVIR POTASSIUM 400 MG TAB PO SCH ×2 (12:03→21:35)
[2021-03-10] MEDS ORDERED: PT OWN MED DRAWER 7, Y5N ONE (19:28)
[2021-03-10] MEDS: MELATONIN 5 MG TABLETS PO SCH (21:35)
[2021-03-10] MEDS: QUEtiapine FUMARATE 300 MG TABLET PO SCH (21:35)
[2021-03-10] MEDS: THIAMINE HCL 100 MG TABLET (FP) PO SCH (21:35)
[2021-03-10] MEDS: EMTRICITABINE/TENOFOV ALAFENAM (DESCOVY) TABLET PO SCH (21:35)
[2021-03-10] MEDS: MIRTAZAPINE 15 MG TABLET (FP) PO SCH (21:37)
[2021-03-11] MEDS: LACTULOSE 20 GM/30 ML UDC (FOR ORAL USE ONLY) PO SCH ×3 (06:17→21:35)
[2021-03-11] MEDS ORDERED: PT OWN MED DRAWER 7, Y5N ONE ×2 (08:43→20:01)
[2021-03-11] MEDS: BACITRACIN 0.9 GM PACKET TP SCH (10:01)
[2021-03-11] MEDS: amLODIPine BESYLATE 5 MG TABLET (FP) PO SCH (10:01)
[2021-03-11] MEDS: SULFAMETHOXAZOLE/TRIMETHOPRIM 800MG/160MG D.S. TABLET PO SCH (10:01)
[2021-03-11] MEDS: PRENATAL VITAMINS W/ FOLIC ACID TABLET (FP) PO SCH (10:01)
[2021-03-11] MEDS: RALTEGRAVIR POTASSIUM 400 MG TAB PO SCH ×2 (10:03→21:36)
[2021-03-11] MEDS: CITALOPRAM HYDROBROMIDE 10 MG TABLET PO SCH (10:03)
[2021-03-11] MEDS: NICOTINE 21 MG/24 HOURS TOPICAL PATCH TD SCH (10:04)
[2021-03-11 10:07] LABS: SARS-CoV-2 NAA Not Detected (Not Detected)
[2021-03-11] MEDS: MIRTAZAPINE 15 MG TABLET (FP) PO SCH (21:35)
[2021-03-11] MEDS: THIAMINE HCL 100 MG TABLET (FP) PO SCH (21:35)
[2021-03-11] MEDS: QUEtiapine FUMARATE 300 MG TABLET PO SCH (21:36)
[2021-03-11] MEDS: EMTRICITABINE/TENOFOV ALAFENAM (DESCOVY) TABLET PO SCH (21:36)
[2021-03-11] MEDS: MELATONIN 5 MG TABLETS PO SCH (21:39)
[2021-03-12] MEDS: LACTULOSE 20 GM/30 ML UDC (FOR ORAL USE ONLY) PO SCH ×3 (06:06→21:31)
[2021-03-12] MEDS ORDERED: PT OWN MED DRAWER 7, Y5N ONE ×2 (09:09→19:25)
[2021-03-12] MEDS: PRENATAL VITAMINS W/ FOLIC ACID TABLET (FP) PO SCH (10:22)
[2021-03-12] MEDS: CITALOPRAM HYDROBROMIDE 10 MG TABLET PO SCH (10:22)
[2021-03-12] MEDS: amLODIPine BESYLATE 5 MG TABLET (FP) PO SCH (10:23)
[2021-03-12] MEDS: SULFAMETHOXAZOLE/TRIMETHOPRIM 800MG/160MG D.S. TABLET PO SCH (10:23)
[2021-03-12] MEDS: NICOTINE 21 MG/24 HOURS TOPICAL PATCH TD SCH (10:23)
[2021-03-12] MEDS: BACITRACIN 0.9 GM PACKET TP SCH (10:23)
[2021-03-12] MEDS: RALTEGRAVIR POTASSIUM 400 MG TAB PO SCH ×2 (10:24→21:31)
[2021-03-12] MEDS: THIAMINE HCL 100 MG TABLET (FP) PO SCH (21:30)
[2021-03-12] MEDS: EMTRICITABINE/TENOFOV ALAFENAM (DESCOVY) TABLET PO SCH (21:31)
[2021-03-12] MEDS: QUEtiapine FUMARATE 300 MG TABLET PO SCH (21:31)
[2021-03-12] MEDS: MELATONIN 5 MG TABLETS PO SCH (21:31)
[2021-03-12] MEDS: MIRTAZAPINE 15 MG TABLET (FP) PO SCH (21:32)
[2021-03-13] MEDS: LACTULOSE 20 GM/30 ML UDC (FOR ORAL USE ONLY) PO SCH ×3 (06:07→21:31)
[2021-03-13] MEDS: BACITRACIN 0.9 GM PACKET TP SCH (09:57)
[2021-03-13] MEDS: CITALOPRAM HYDROBROMIDE 10 MG TABLET PO SCH (09:58)
[2021-03-13] MEDS: PRENATAL VITAMINS W/ FOLIC ACID TABLET (FP) PO SCH (09:58)
[2021-03-13] MEDS: SULFAMETHOXAZOLE/TRIMETHOPRIM 800MG/160MG D.S. TABLET PO SCH (09:58)
[2021-03-13] MEDS: RALTEGRAVIR POTASSIUM 400 MG TAB PO SCH ×2 (09:58→21:31)
[2021-03-13] MEDS: amLODIPine BESYLATE 5 MG TABLET (FP) PO SCH (09:58)
[2021-03-13] MEDS: NICOTINE 21 MG/24 HOURS TOPICAL PATCH TD SCH (09:59)
[2021-03-13] MEDS ORDERED: PT OWN MED DRAWER 7, Y5N ONE (20:19)
[2021-03-13] MEDS: QUEtiapine FUMARATE 300 MG TABLET PO SCH (21:31)
[2021-03-13] MEDS: THIAMINE HCL 100 MG TABLET (FP) PO SCH (21:31)
[2021-03-13] MEDS: MELATONIN 5 MG TABLETS PO SCH (21:32)
[2021-03-13] MEDS: EMTRICITABINE/TENOFOV ALAFENAM (DESCOVY) TABLET PO SCH (21:32)
[2021-03-13] MEDS: MIRTAZAPINE 15 MG TABLET (FP) PO SCH (21:33)
[2021-03-14] MEDS: LACTULOSE 20 GM/30 ML UDC (FOR ORAL USE ONLY) PO SCH ×3 (06:32→21:31)
[2021-03-14] MEDS: PRENATAL VITAMINS W/ FOLIC ACID TABLET (FP) PO SCH (09:44)
[2021-03-14] MEDS: amLODIPine BESYLATE 5 MG TABLET (FP) PO SCH (09:45)
[2021-03-14] MEDS: NICOTINE 21 MG/24 HOURS TOPICAL PATCH TD SCH (09:45)
[2021-03-14] MEDS: CITALOPRAM HYDROBROMIDE 10 MG TABLET PO SCH (09:45)
[2021-03-14] MEDS: RALTEGRAVIR POTASSIUM 400 MG TAB PO SCH ×2 (09:45→21:33)
[2021-03-14] MEDS: SULFAMETHOXAZOLE/TRIMETHOPRIM 800MG/160MG D.S. TABLET PO SCH (09:45)
[2021-03-14] MEDS: BACITRACIN 0.9 GM PACKET TP SCH (09:45)
[2021-03-14] MEDS ORDERED: PT OWN MED DRAWER 7, Y5N ONE ×2 (19:23→21:33)
[2021-03-14] MEDS: EMTRICITABINE/TENOFOV ALAFENAM (DESCOVY) TABLET PO SCH (21:31)
[2021-03-14] MEDS: QUEtiapine FUMARATE 300 MG TABLET PO SCH (21:33)
[2021-03-14] MEDS: MIRTAZAPINE 15 MG TABLET (FP) PO SCH (21:33)
[2021-03-14] MEDS: MELATONIN 5 MG TABLETS PO SCH (21:33)
[2021-03-14] MEDS: THIAMINE HCL 100 MG TABLET (FP) PO SCH (21:33)
[2021-03-15] MEDS: LACTULOSE 20 GM/30 ML UDC (FOR ORAL USE ONLY) PO SCH ×3 (06:18→21:29)
[2021-03-15] MEDS: PRENATAL VITAMINS W/ FOLIC ACID TABLET (FP) PO SCH (10:20)
[2021-03-15] MEDS: RALTEGRAVIR POTASSIUM 400 MG TAB PO SCH ×2 (10:20→21:30)
[2021-03-15] MEDS: CITALOPRAM HYDROBROMIDE 10 MG TABLET PO SCH (10:20)
[2021-03-15] MEDS: amLODIPine BESYLATE 5 MG TABLET (FP) PO SCH (10:20)
[2021-03-15] MEDS: SULFAMETHOXAZOLE/TRIMETHOPRIM 800MG/160MG D.S. TABLET PO SCH (10:20)
[2021-03-15] MEDS: BACITRACIN 0.9 GM PACKET TP SCH (10:20)
[2021-03-15] MEDS: NICOTINE 21 MG/24 HOURS TOPICAL PATCH TD SCH (10:20)
[2021-03-15] MEDS ORDERED: PT OWN MED DRAWER 7, Y5N ONE (19:58)
[2021-03-15] MEDS: MELATONIN 5 MG TABLETS PO SCH (21:30)
[2021-03-15] MEDS: QUEtiapine FUMARATE 300 MG TABLET PO SCH (21:30)
[2021-03-15] MEDS: MIRTAZAPINE 15 MG TABLET (FP) PO SCH (21:30)
[2021-03-15] MEDS: THIAMINE HCL 100 MG TABLET (FP) PO SCH (21:31)
[2021-03-15] MEDS: EMTRICITABINE/TENOFOV ALAFENAM (DESCOVY) TABLET PO SCH (21:31)
[2021-03-16] MEDS: LACTULOSE 20 GM/30 ML UDC (FOR ORAL USE ONLY) PO SCH ×3 (05:56→21:34)
[2021-03-16] MEDS: SULFAMETHOXAZOLE/TRIMETHOPRIM 800MG/160MG D.S. TABLET PO SCH (09:59)
[2021-03-16] MEDS: BACITRACIN 0.9 GM PACKET TP SCH (09:59)
[2021-03-16] MEDS: RALTEGRAVIR POTASSIUM 400 MG TAB PO SCH ×2 (09:59→21:34)
[2021-03-16] MEDS: amLODIPine BESYLATE 5 MG TABLET (FP) PO SCH (09:59)
[2021-03-16] MEDS: CITALOPRAM HYDROBROMIDE 10 MG TABLET PO SCH (09:59)
[2021-03-16] MEDS: PRENATAL VITAMINS W/ FOLIC ACID TABLET (FP) PO SCH (10:00)
[2021-03-16] MEDS: NICOTINE 21 MG/24 HOURS TOPICAL PATCH TD SCH (10:00)
[2021-03-16] MEDS: MIRTAZAPINE 15 MG TABLET (FP) PO SCH (21:34)
[2021-03-16] MEDS: MELATONIN 5 MG TABLETS PO SCH (21:34)
[2021-03-16] MEDS: THIAMINE HCL 100 MG TABLET (FP) PO SCH (21:34)
[2021-03-16] MEDS: QUEtiapine FUMARATE 300 MG TABLET PO SCH (21:34)
[2021-03-16] MEDS: EMTRICITABINE/TENOFOV ALAFENAM (DESCOVY) TABLET PO SCH (21:34)
[2021-03-17] MEDS: LACTULOSE 20 GM/30 ML UDC (FOR ORAL USE ONLY) PO SCH ×3 (06:16→21:36)
[2021-03-17] MEDS: BACITRACIN 0.9 GM PACKET TP SCH (09:58)
[2021-03-17] MEDS: RALTEGRAVIR POTASSIUM 400 MG TAB PO SCH ×2 (09:58→21:36)
[2021-03-17] MEDS: SULFAMETHOXAZOLE/TRIMETHOPRIM 800MG/160MG D.S. TABLET PO SCH (09:58)
[2021-03-17] MEDS: amLODIPine BESYLATE 5 MG TABLET (FP) PO SCH (09:58)
[2021-03-17] MEDS: PRENATAL VITAMINS W/ FOLIC ACID TABLET (FP) PO SCH (09:58)
[2021-03-17] MEDS: NICOTINE 21 MG/24 HOURS TOPICAL PATCH TD SCH (09:59)
[2021-03-17] MEDS ORDERED: PT OWN MED DRAWER 7, Y5N ONE (20:07)
[2021-03-17] MEDS: EMTRICITABINE/TENOFOV ALAFENAM (DESCOVY) TABLET PO SCH (21:36)
[2021-03-17] MEDS: traZODone HCL 100 MG TABLET (FP) PO SCH (21:36)
[2021-03-17] MEDS: THIAMINE HCL 100 MG TABLET (FP) PO SCH (21:36)
[2021-03-17] MEDS: MELATONIN 5 MG TABLETS PO SCH (21:37)
[2021-03-17] MEDS: MIRTAZAPINE 30 MG TABLET PO SCH (21:37)
[2021-03-18] MEDS: LACTULOSE 20 GM/30 ML UDC (FOR ORAL USE ONLY) PO SCH ×3 (06:14→21:20)
[2021-03-18] MEDS ORDERED: PT OWN MED DRAWER 7, Y5N ONE ×2 (08:50→18:36)
[2021-03-18] MEDS: NICOTINE 21 MG/24 HOURS TOPICAL PATCH TD SCH (09:52)
[2021-03-18] MEDS: RALTEGRAVIR POTASSIUM 400 MG TAB PO SCH ×2 (09:52→21:20)
[2021-03-18] MEDS: PRENATAL VITAMINS W/ FOLIC ACID TABLET (FP) PO SCH (09:52)
[2021-03-18] MEDS: amLODIPine BESYLATE 5 MG TABLET (FP) PO SCH (09:52)
[2021-03-18] MEDS: BACITRACIN 0.9 GM PACKET TP SCH (09:52)
[2021-03-18] MEDS: SULFAMETHOXAZOLE/TRIMETHOPRIM 800MG/160MG D.S. TABLET PO SCH (09:53)
[2021-03-18 10:10] LABS: BASO % 0.5 % (0-2.0); EOS % 4.3 % (0-4.5); HEMATOCRIT 39.8 % (35.4-49); HEMOGLOBIN 13.2 GM/dL (11.7-16.9); LYMPH % 65.1 % (8-40); MCH 29.9 pg (25.7-33.7); MCHC 33.1 g/dl (32.0-35.9); MEAN CELL VOLUME 90.4 fl (80-96); MEAN PLT VOLUME 11.2 fl (7.5-11.1); MONO % 14.8 % (3.8-10.2); NEUT % 15.3 % (42.8-82.8); PLATELET COUNT 139 K/MM3 (134-434); RDW 14.4 % (11.9-15.9); WHITE BLOOD COUNT 2.7 K/mm3 (4.0-10.0)
[2021-03-18 11:18] LABS: ANISOCYTOSIS 0; HELMET CELLS 0; HOWELL-JOLLY BODIES 0; MACROCYTOSIS 0; OVALOCYTE 0; PLATELET ESTIMATE DECREASED; ROULEAU 0; SICKELED CELLS 0; TARGET CELLS 0; TEAR DROP CELLS 0; TOXIC GRANULATION 0
[2021-03-18] MEDS: THIAMINE HCL 100 MG TABLET (FP) PO SCH (21:20)
[2021-03-18] MEDS: MIRTAZAPINE 30 MG TABLET PO SCH (21:20)
[2021-03-18] MEDS: traZODone HCL 100 MG TABLET (FP) PO SCH (21:20)
[2021-03-18] MEDS: EMTRICITABINE/TENOFOV ALAFENAM (DESCOVY) TABLET PO SCH (21:21)
[2021-03-18] MEDS: MELATONIN 5 MG TABLETS PO SCH (21:21)
[2021-03-19] MEDS: LACTULOSE 20 GM/30 ML UDC (FOR ORAL USE ONLY) PO SCH ×2 (05:58→13:24)
[2021-03-19 07:19] VITALS: TEMP 97.6
[2021-03-19 09:12] VITALS: BP 126/70; PULSE 89
[2021-03-19] MEDS: NICOTINE 21 MG/24 HOURS TOPICAL PATCH TD SCH (09:50)
[2021-03-19] MEDS: PRENATAL VITAMINS W/ FOLIC ACID TABLET (FP) PO SCH (09:50)
[2021-03-19] MEDS: BACITRACIN 0.9 GM PACKET TP SCH (09:51)
[2021-03-19] MEDS: amLODIPine BESYLATE 5 MG TABLET (FP) PO SCH (09:51)
[2021-03-19] MEDS: SULFAMETHOXAZOLE/TRIMETHOPRIM 800MG/160MG D.S. TABLET PO SCH (09:51)
[2021-03-19] MEDS: RALTEGRAVIR POTASSIUM 400 MG TAB PO SCH (09:51)
== END 2021-03-19 15:04 | disposition home or self-care (01) | DRG 895 ==
LOC: YASAS 09:13 → Y6N 23:21 → Y5N 03-05 14:20
PROVIDERS: ADMIT Allergy & Immunology; ATTEND Allergy & Immunology
PROC: HZ2ZZZZ Detoxification Services for Substance Abuse Treatment (ICD-10-PCS; 2021-03-01)
PROC: HZ42ZZZ Group Counseling for Substance Abuse Treatment, Cognitive-Behavioral (ICD-10-PCS; principal; 2021-03-05)
DX: F10.20 Alcohol dependence, uncomplicated (principal); F14.20 Cocaine dependence, uncomplicated; F19.282 Other psychoactive substance dependence with psychoactive substance-induced sleep disorder; F19.280 Other psychoactive substance dependence with psychoactive substance-induced anxiety disorder; F17.210 Nicotine dependence, cigarettes, uncomplicated; F19.24 Other psychoactive substance dependence with psychoactive substance-induced mood disorder; F42.9 Obsessive-compulsive disorder, unspecified; F43.10 Post-traumatic stress disorder, unspecified; F32.9 Major depressive disorder, single episode, unspecified; Z21 Asymptomatic human immunodeficiency virus [HIV] infection status; D69.6 Thrombocytopenia, unspecified; I10 Essential (primary) hypertension; J45.20 Mild intermittent asthma, uncomplicated; G40.909 Epilepsy, unspecified, not intractable, without status epilepticus; R79.89 Other specified abnormal findings of blood chemistry; R25.3 Fasciculation; Z62.810 Personal history of physical and sexual abuse in childhood; Z86.19 Personal history of other infectious and parasitic diseases; Z91.010 Allergy to peanuts; Z91.013 Allergy to seafood
CPT/HCPCS: 36415; 80053; 82140; 85025; 85027; 85610; 86593; 86780; 93005; 93010; C9803; U0003; U0005

== ENCOUNTER 2021-10-19 09:26 | Inpatient (IN) | payer OTHER ==
[2021-10-19 10:09] VITALS: BMI 25.7
[2021-10-19] MEDS ORDERED: MAGNESIUM CITRATE 300 ML BOTTLE PO PRN (10:37)
[2021-10-19] MEDS ORDERED: ONDANSETRON *ODT* 4 MG TABLET SL PRN (10:37)
[2021-10-19] MEDS ORDERED: chlordiazePOXIDE HCL 25 MG CAPSULE PO PRN (10:37)
[2021-10-19] MEDS ORDERED: MAG HYDROX/AL HYDROX/SIMETH 30 ML UNIT-DOSE CUP PO PRN (10:37)
[2021-10-19] MEDS ORDERED: MENTHOL/PHENOL 1 EACH UD MM PRN (10:37)
[2021-10-19] MEDS ORDERED: MAGNESIUM HYDROX 2400MG/30ML ORAL SUSPENSION 30 ML CUP PO PRN (10:37)
[2021-10-19] MEDS ORDERED: BISMUTH SUBSALICYLATE 524 MG/30 ML PO PRN (10:37)
[2021-10-19] MEDS ORDERED: ACETAMINOPHEN 325 MG TABLET (FP) PO PRN (10:37)
[2021-10-19] MEDS ORDERED: METHOCARBAMOL 500 MG TABLET PO PRN (10:37)
[2021-10-19] MEDS: NICOTINE 21 MG/24 HOURS TOPICAL PATCH TD SCH (11:35)
[2021-10-19] MEDS: PRENATAL VITAMINS W/ FOLIC ACID TABLET (FP) PO SCH (11:36)
[2021-10-19] MEDS: ACETAMINOPHEN 325 MG TABLET (FP) PO PRN ×2 (11:36→17:44)
[2021-10-19] MEDS: chlordiazePOXIDE HCL 25 MG CAPSULE PO SCH ×3 (11:41→22:43)
[2021-10-19 13:34] LABS: HEMATOCRIT 36.6 % (35.4-49); HEMOGLOBIN 12.2 GM/dL (11.7-16.9); MCH 29.7 pg (25.7-33.7); MCHC 33.3 g/dl (32.0-35.9); MEAN CELL VOLUME 89.2 fl (80-96); MEAN PLT VOLUME 8.9 fl (7.5-11.1); PLATELET COUNT 191 10^3/uL (134-434); RBC 4.11 M/mm3 (4.00-5.60); WHITE BLOOD COUNT 2.2 K/mm3 (4.0-10.0)
[2021-10-19 13:35] LABS: CALCIUM 8.7 mg/dL (8.5-10.1)
[2021-10-19 13:36] LABS: ALBUMIN 3.2 g/dl (3.4-5.0); BLOOD UREA NITROGEN 16.6 mg/dL (7-18)
[2021-10-19 13:40] LABS: BILIRUBIN,TOTAL 0.3 mg/dL (0.2-1); TOT PROT 8.2 g/dl (6.4-8.2)
[2021-10-19] MEDS: hydrOXYzine PAMOATE 25 MG CAPSULE (FP) PO SCH ×3 (15:57→22:43)
[2021-10-19] MEDS ORDERED: MELATONIN 5 MG TABLETS PO SCH (22:00)
[2021-10-19] MEDS: THIAMINE HCL 100 MG TABLET (FP) PO SCH (22:43)
[2021-10-20] MEDS: chlordiazePOXIDE HCL 25 MG CAPSULE PO SCH ×4 (05:38→22:46)
[2021-10-20] MEDS: hydrOXYzine PAMOATE 25 MG CAPSULE (FP) PO SCH ×5 (05:39→22:45)
[2021-10-20] MEDS: ACETAMINOPHEN 325 MG TABLET (FP) PO PRN (05:40)
[2021-10-20] MEDS: PRENATAL VITAMINS W/ FOLIC ACID TABLET (FP) PO SCH (10:30)
[2021-10-20] MEDS: amLODIPine BESYLATE 5 MG TABLET (FP) PO SCH (10:31)
[2021-10-20] MEDS: BICTEGRAV/EMTRICIT/TENOFOV (BIKTARVY) 50-200-25 MG TABLET PO SCH (10:31)
[2021-10-20] MEDS: NICOTINE 21 MG/24 HOURS TOPICAL PATCH TD SCH (10:32)
[2021-10-20] MEDS: CITALOPRAM HYDROBROMIDE 20 MG TABLET PO SCH (10:33)
[2021-10-20] MEDS: THIAMINE HCL 100 MG TABLET (FP) PO SCH (22:45)
[2021-10-20] MEDS: traZODone HCL 50 MG TABLET (FP) PO SCH (22:46)
[2021-10-20] MEDS: MIRTAZAPINE 30 MG TABLET PO SCH (22:53)
[2021-10-21] MEDS: hydrOXYzine PAMOATE 25 MG CAPSULE (FP) PO SCH ×5 (06:20→22:31)
[2021-10-21] MEDS: chlordiazePOXIDE HCL 25 MG CAPSULE PO SCH ×4 (06:20→22:31)
[2021-10-21] MEDS: ACETAMINOPHEN 325 MG TABLET (FP) PO PRN ×2 (06:25→13:09)
[2021-10-21] MEDS: BICTEGRAV/EMTRICIT/TENOFOV (BIKTARVY) 50-200-25 MG TABLET PO SCH (07:08)
[2021-10-21] MEDS: amLODIPine BESYLATE 5 MG TABLET (FP) PO SCH (10:42)
[2021-10-21] MEDS: CITALOPRAM HYDROBROMIDE 20 MG TABLET PO SCH (10:42)
[2021-10-21] MEDS: PRENATAL VITAMINS W/ FOLIC ACID TABLET (FP) PO SCH (10:46)
[2021-10-21] MEDS: NICOTINE 21 MG/24 HOURS TOPICAL PATCH TD SCH (10:53)
[2021-10-21] MEDS: THIAMINE HCL 100 MG TABLET (FP) PO SCH (22:31)
[2021-10-21] MEDS: traZODone HCL 50 MG TABLET (FP) PO SCH (22:31)
[2021-10-21] MEDS: MIRTAZAPINE 30 MG TABLET PO SCH (22:31)
[2021-10-22] MEDS ORDERED: chlordiazePOXIDE HCL 10 MG CAPSULE PO PRN
[2021-10-22] MEDS: chlordiazePOXIDE HCL 10 MG CAPSULE PO SCH ×4 (05:57→22:10)
[2021-10-22] MEDS: hydrOXYzine PAMOATE 25 MG CAPSULE (FP) PO SCH ×5 (05:57→22:09)
[2021-10-22] MEDS: ACETAMINOPHEN 325 MG TABLET (FP) PO PRN (06:02)
[2021-10-22] MEDS: BICTEGRAV/EMTRICIT/TENOFOV (BIKTARVY) 50-200-25 MG TABLET PO SCH (07:30)
[2021-10-22] MEDS: PRENATAL VITAMINS W/ FOLIC ACID TABLET (FP) PO SCH (10:49)
[2021-10-22] MEDS: NICOTINE 21 MG/24 HOURS TOPICAL PATCH TD SCH (10:49)
[2021-10-22] MEDS: CITALOPRAM HYDROBROMIDE 20 MG TABLET PO SCH (10:49)
[2021-10-22] MEDS: amLODIPine BESYLATE 5 MG TABLET (FP) PO SCH (10:49)
[2021-10-22] MEDS: IBUPROFEN 400 MG TABLET (FP) PO PRN (18:43)
[2021-10-22] MEDS: traZODone HCL 50 MG TABLET (FP) PO SCH (22:08)
[2021-10-22] MEDS: THIAMINE HCL 100 MG TABLET (FP) PO SCH (22:08)
[2021-10-22] MEDS: valACYclovir HCL 500 MG TABLET (FP) PO SCH (22:09)
[2021-10-22] MEDS: MIRTAZAPINE 30 MG TABLET PO SCH (22:09)
[2021-10-23] MEDS: hydrOXYzine PAMOATE 25 MG CAPSULE (FP) PO SCH ×5 (05:23→22:19)
[2021-10-23] MEDS: chlordiazePOXIDE HCL 10 MG CAPSULE PO SCH ×2 (05:23→18:41)
[2021-10-23] MEDS: BICTEGRAV/EMTRICIT/TENOFOV (BIKTARVY) 50-200-25 MG TABLET PO SCH (07:17)
[2021-10-23] MEDS: PRENATAL VITAMINS W/ FOLIC ACID TABLET (FP) PO SCH (10:12)
[2021-10-23] MEDS: CITALOPRAM HYDROBROMIDE 20 MG TABLET PO SCH (10:12)
[2021-10-23] MEDS: valACYclovir HCL 500 MG TABLET (FP) PO SCH ×2 (10:12→22:19)
[2021-10-23] MEDS: amLODIPine BESYLATE 5 MG TABLET (FP) PO SCH (10:13)
[2021-10-23] MEDS: NICOTINE 21 MG/24 HOURS TOPICAL PATCH TD SCH (10:13)
[2021-10-23] MEDS: MIRTAZAPINE 30 MG TABLET PO SCH (22:19)
[2021-10-23] MEDS: traZODone HCL 50 MG TABLET (FP) PO SCH (22:19)
[2021-10-23] MEDS: THIAMINE HCL 100 MG TABLET (FP) PO SCH (22:19)
[2021-10-24] MEDS ORDERED: chlordiazePOXIDE HCL 10 MG CAPSULE PO ONE (05:00)
[2021-10-24] MEDS: hydrOXYzine PAMOATE 25 MG CAPSULE (FP) PO SCH ×5 (05:17→22:32)
[2021-10-24] MEDS: BICTEGRAV/EMTRICIT/TENOFOV (BIKTARVY) 50-200-25 MG TABLET PO SCH (08:35)
[2021-10-24] MEDS: NICOTINE 21 MG/24 HOURS TOPICAL PATCH TD SCH (10:09)
[2021-10-24] MEDS: PRENATAL VITAMINS W/ FOLIC ACID TABLET (FP) PO SCH (10:09)
[2021-10-24] MEDS: CITALOPRAM HYDROBROMIDE 20 MG TABLET PO SCH (10:12)
[2021-10-24] MEDS: amLODIPine BESYLATE 5 MG TABLET (FP) PO SCH (10:12)
[2021-10-24] MEDS: valACYclovir HCL 500 MG TABLET (FP) PO SCH ×2 (10:12→22:30)
[2021-10-24] MEDS ORDERED: INSULIN SLIDING SCALE (NOVOLOG) 1 VIAL SQ SCH (17:38)
[2021-10-24] MEDS ORDERED: INSULIN (NOVOLOG) ASPART 100 UNITS/ML 10ML VIAL ONE ×2 (17:54→22:34)
[2021-10-24] MEDS ORDERED: METOPROLOL TARTRATE 25 MG TABLET (FP) PO ONE (17:55)
[2021-10-24] MEDS: INSULIN SLIDING SCALE (NOVOLOG) 1 VIAL SQ SCH (22:30)
[2021-10-24] MEDS: MIRTAZAPINE 30 MG TABLET PO SCH (22:30)
[2021-10-24] MEDS: traZODone HCL 50 MG TABLET (FP) PO SCH (22:30)
[2021-10-24] MEDS: THIAMINE HCL 100 MG TABLET (FP) PO SCH (22:30)
[2021-10-25] MEDS: hydrOXYzine PAMOATE 25 MG CAPSULE (FP) PO SCH ×2 (05:28→10:56)
[2021-10-25] MEDS: BICTEGRAV/EMTRICIT/TENOFOV (BIKTARVY) 50-200-25 MG TABLET PO SCH (07:26)
[2021-10-25] MEDS: INSULIN SLIDING SCALE (NOVOLOG) 1 VIAL SQ SCH ×4 (07:28→22:51)
[2021-10-25] MEDS: amLODIPine BESYLATE 5 MG TABLET (FP) PO SCH (10:56)
[2021-10-25] MEDS: CITALOPRAM HYDROBROMIDE 20 MG TABLET PO SCH (10:56)
[2021-10-25] MEDS: NICOTINE 21 MG/24 HOURS TOPICAL PATCH TD SCH (10:56)
[2021-10-25] MEDS: valACYclovir HCL 500 MG TABLET (FP) PO SCH ×2 (10:56→22:51)
[2021-10-25] MEDS: PRENATAL VITAMINS W/ FOLIC ACID TABLET (FP) PO SCH (10:56)
[2021-10-25] MEDS ORDERED: INSULIN (NOVOLOG) ASPART 100 UNITS/ML 10ML VIAL ONE (17:13)
[2021-10-25] MEDS: traZODone HCL 50 MG TABLET (FP) PO SCH (22:50)
[2021-10-25] MEDS: MIRTAZAPINE 30 MG TABLET PO SCH (22:51)
[2021-10-25] MEDS: THIAMINE HCL 100 MG TABLET (FP) PO SCH (22:51)
[2021-10-26] MEDS: INSULIN SLIDING SCALE (NOVOLOG) 1 VIAL SQ SCH ×4 (07:42→22:01)
[2021-10-26] MEDS: PRENATAL VITAMINS W/ FOLIC ACID TABLET (FP) PO SCH ×2 (10:08→10:12)
[2021-10-26] MEDS: CITALOPRAM HYDROBROMIDE 20 MG TABLET PO SCH (10:08)
[2021-10-26] MEDS: NICOTINE 21 MG/24 HOURS TOPICAL PATCH TD SCH (10:08)
[2021-10-26] MEDS: amLODIPine BESYLATE 5 MG TABLET (FP) PO SCH (10:08)
[2021-10-26] MEDS: valACYclovir HCL 500 MG TABLET (FP) PO SCH ×2 (10:08→22:01)
[2021-10-26] MEDS: BICTEGRAV/EMTRICIT/TENOFOV (BIKTARVY) 50-200-25 MG TABLET PO SCH (10:08)
[2021-10-26] MEDS ORDERED: INSULIN (NOVOLOG) ASPART 100 UNITS/ML 10ML VIAL ONE ×3 (11:33→22:50)
[2021-10-26] MEDS: NYSTATIN 500,000 UNITS/5 ML SUSPENSION PO SCH ×3 (13:16→23:00)
[2021-10-26] MEDS: THIAMINE HCL 100 MG TABLET (FP) PO SCH (22:01)
[2021-10-26] MEDS: MIRTAZAPINE 30 MG TABLET PO SCH (22:01)
[2021-10-26] MEDS: traZODone HCL 50 MG TABLET (FP) PO SCH (22:01)
[2021-10-27] MEDS: NYSTATIN 500,000 UNITS/5 ML SUSPENSION PO SCH ×4 (05:51→23:20)
[2021-10-27] MEDS: INSULIN SLIDING SCALE (NOVOLOG) 1 VIAL SQ SCH ×4 (07:12→21:05)
[2021-10-27] MEDS: BICTEGRAV/EMTRICIT/TENOFOV (BIKTARVY) 50-200-25 MG TABLET PO SCH (07:13)
[2021-10-27] MEDS: amLODIPine BESYLATE 5 MG TABLET (FP) PO SCH (10:03)
[2021-10-27] MEDS: valACYclovir HCL 500 MG TABLET (FP) PO SCH ×2 (10:03→21:02)
[2021-10-27] MEDS: PRENATAL VITAMINS W/ FOLIC ACID TABLET (FP) PO SCH (10:03)
[2021-10-27] MEDS: CITALOPRAM HYDROBROMIDE 20 MG TABLET PO SCH (10:03)
[2021-10-27] MEDS: NICOTINE 21 MG/24 HOURS TOPICAL PATCH TD SCH (10:06)
[2021-10-27] MEDS ORDERED: INSULIN (NOVOLOG) ASPART 100 UNITS/ML 10ML VIAL ONE (11:35)
[2021-10-27] MEDS: MIRTAZAPINE 30 MG TABLET PO SCH (21:02)
[2021-10-27] MEDS: THIAMINE HCL 100 MG TABLET (FP) PO SCH (21:02)
[2021-10-27] MEDS: traZODone HCL 50 MG TABLET (FP) PO SCH (21:02)
[2021-10-28] MEDS: NYSTATIN 500,000 UNITS/5 ML SUSPENSION PO SCH ×4 (06:29→23:30)
[2021-10-28] MEDS: NICOTINE 10 MG CARTRIDGE (INHALER) IH PRN (06:33)
[2021-10-28] MEDS: INSULIN SLIDING SCALE (NOVOLOG) 1 VIAL SQ SCH ×4 (06:34→21:15)
[2021-10-28] MEDS: BICTEGRAV/EMTRICIT/TENOFOV (BIKTARVY) 50-200-25 MG TABLET PO SCH (07:28)
[2021-10-28] MEDS: valACYclovir HCL 500 MG TABLET (FP) PO SCH ×2 (10:09→21:12)
[2021-10-28] MEDS: PRENATAL VITAMINS W/ FOLIC ACID TABLET (FP) PO SCH (10:09)
[2021-10-28] MEDS: amLODIPine BESYLATE 5 MG TABLET (FP) PO SCH (10:09)
[2021-10-28] MEDS: CITALOPRAM HYDROBROMIDE 20 MG TABLET PO SCH (10:09)
[2021-10-28] MEDS: NICOTINE 21 MG/24 HOURS TOPICAL PATCH TD SCH (10:09)
[2021-10-28] MEDS: MIRTAZAPINE 30 MG TABLET PO SCH (21:12)
[2021-10-28] MEDS: THIAMINE HCL 100 MG TABLET (FP) PO SCH (21:13)
[2021-10-28] MEDS: traZODone HCL 50 MG TABLET (FP) PO SCH (21:13)
[2021-10-29] MEDS: NYSTATIN 500,000 UNITS/5 ML SUSPENSION PO SCH ×4 (06:15→23:21)
[2021-10-29] MEDS: INSULIN SLIDING SCALE (NOVOLOG) 1 VIAL SQ SCH ×4 (06:19→21:00)
[2021-10-29] MEDS: BICTEGRAV/EMTRICIT/TENOFOV (BIKTARVY) 50-200-25 MG TABLET PO SCH (07:22)
[2021-10-29] MEDS: valACYclovir HCL 500 MG TABLET (FP) PO SCH ×2 (09:51→21:00)
[2021-10-29] MEDS: NICOTINE 21 MG/24 HOURS TOPICAL PATCH TD SCH (09:51)
[2021-10-29] MEDS: CITALOPRAM HYDROBROMIDE 20 MG TABLET PO SCH (09:51)
[2021-10-29] MEDS: amLODIPine BESYLATE 5 MG TABLET (FP) PO SCH (09:51)
[2021-10-29] MEDS: PRENATAL VITAMINS W/ FOLIC ACID TABLET (FP) PO SCH (09:52)
[2021-10-29] MEDS: MIRTAZAPINE 30 MG TABLET PO SCH (21:00)
[2021-10-29] MEDS: THIAMINE HCL 100 MG TABLET (FP) PO SCH (21:00)
[2021-10-29] MEDS: traZODone HCL 50 MG TABLET (FP) PO SCH (21:00)
[2021-10-30] MEDS: NYSTATIN 500,000 UNITS/5 ML SUSPENSION PO SCH ×4 (06:13→23:04)
[2021-10-30] MEDS: INSULIN SLIDING SCALE (NOVOLOG) 1 VIAL SQ SCH ×4 (06:16→21:00)
[2021-10-30] MEDS: BICTEGRAV/EMTRICIT/TENOFOV (BIKTARVY) 50-200-25 MG TABLET PO SCH (08:00)
[2021-10-30] MEDS: CITALOPRAM HYDROBROMIDE 20 MG TABLET PO SCH (09:40)
[2021-10-30] MEDS: NICOTINE 21 MG/24 HOURS TOPICAL PATCH TD SCH (09:40)
[2021-10-30] MEDS: amLODIPine BESYLATE 5 MG TABLET (FP) PO SCH (09:40)
[2021-10-30] MEDS: PRENATAL VITAMINS W/ FOLIC ACID TABLET (FP) PO SCH (09:40)
[2021-10-30] MEDS: valACYclovir HCL 500 MG TABLET (FP) PO SCH ×2 (09:40→21:00)
[2021-10-30] MEDS: traZODone HCL 50 MG TABLET (FP) PO SCH (21:00)
[2021-10-30] MEDS: THIAMINE HCL 100 MG TABLET (FP) PO SCH (21:00)
[2021-10-30] MEDS: MIRTAZAPINE 30 MG TABLET PO SCH (21:00)
[2021-10-31] MEDS: NYSTATIN 500,000 UNITS/5 ML SUSPENSION PO SCH ×4 (06:21→23:37)
[2021-10-31] MEDS: INSULIN SLIDING SCALE (NOVOLOG) 1 VIAL SQ SCH ×4 (06:24→21:21)
[2021-10-31] MEDS: BICTEGRAV/EMTRICIT/TENOFOV (BIKTARVY) 50-200-25 MG TABLET PO SCH (07:05)
[2021-10-31] MEDS: CITALOPRAM HYDROBROMIDE 20 MG TABLET PO SCH (09:20)
[2021-10-31] MEDS: amLODIPine BESYLATE 5 MG TABLET (FP) PO SCH (09:21)
[2021-10-31] MEDS: NICOTINE 21 MG/24 HOURS TOPICAL PATCH TD SCH (09:21)
[2021-10-31] MEDS: valACYclovir HCL 500 MG TABLET (FP) PO SCH ×2 (09:21→21:20)
[2021-10-31] MEDS: PRENATAL VITAMINS W/ FOLIC ACID TABLET (FP) PO SCH (09:21)
[2021-10-31] MEDS: traZODone HCL 50 MG TABLET (FP) PO SCH (21:20)
[2021-10-31] MEDS: MIRTAZAPINE 30 MG TABLET PO SCH (21:20)
[2021-10-31] MEDS: THIAMINE HCL 100 MG TABLET (FP) PO SCH (21:21)
[2021-11-01] MEDS: NYSTATIN 500,000 UNITS/5 ML SUSPENSION PO SCH ×4 (06:03→23:41)
[2021-11-01] MEDS: INSULIN SLIDING SCALE (NOVOLOG) 1 VIAL SQ SCH ×4 (06:03→21:13)
[2021-11-01] MEDS: BICTEGRAV/EMTRICIT/TENOFOV (BIKTARVY) 50-200-25 MG TABLET PO SCH (07:01)
[2021-11-01] MEDS: PRENATAL VITAMINS W/ FOLIC ACID TABLET (FP) PO SCH (09:23)
[2021-11-01] MEDS: valACYclovir HCL 500 MG TABLET (FP) PO SCH ×2 (09:23→21:10)
[2021-11-01] MEDS: CITALOPRAM HYDROBROMIDE 20 MG TABLET PO SCH (09:23)
[2021-11-01] MEDS: amLODIPine BESYLATE 5 MG TABLET (FP) PO SCH (09:23)
[2021-11-01] MEDS: NICOTINE 21 MG/24 HOURS TOPICAL PATCH TD SCH (09:23)
[2021-11-01] MEDS: MIRTAZAPINE 30 MG TABLET PO SCH (21:10)
[2021-11-01] MEDS: traZODone HCL 50 MG TABLET (FP) PO SCH (21:10)
[2021-11-01] MEDS: THIAMINE HCL 100 MG TABLET (FP) PO SCH (21:11)
[2021-11-02] MEDS: NYSTATIN 500,000 UNITS/5 ML SUSPENSION PO SCH ×4 (06:15→23:10)
[2021-11-02] MEDS: INSULIN SLIDING SCALE (NOVOLOG) 1 VIAL SQ SCH ×4 (06:18→21:07)
[2021-11-02] MEDS: BICTEGRAV/EMTRICIT/TENOFOV (BIKTARVY) 50-200-25 MG TABLET PO SCH (07:41)
[2021-11-02] MEDS: NICOTINE 21 MG/24 HOURS TOPICAL PATCH TD SCH (09:27)
[2021-11-02] MEDS: CITALOPRAM HYDROBROMIDE 20 MG TABLET PO SCH (09:27)
[2021-11-02] MEDS: valACYclovir HCL 500 MG TABLET (FP) PO SCH ×2 (09:27→21:05)
[2021-11-02] MEDS: PRENATAL VITAMINS W/ FOLIC ACID TABLET (FP) PO SCH (09:27)
[2021-11-02] MEDS: amLODIPine BESYLATE 5 MG TABLET (FP) PO SCH (09:27)
[2021-11-02] MEDS: NICOTINE 10 MG CARTRIDGE (INHALER) IH PRN (17:32)
[2021-11-02] MEDS: traZODone HCL 50 MG TABLET (FP) PO SCH (21:04)
[2021-11-02] MEDS: THIAMINE HCL 100 MG TABLET (FP) PO SCH (21:05)
[2021-11-02] MEDS: MIRTAZAPINE 30 MG TABLET PO SCH (21:05)
[2021-11-03 00:06] LABS: SARS-CoV-2 NAA Not Detected (Not Detected)
[2021-11-03] MEDS: ACETAMINOPHEN 325 MG TABLET (FP) PO PRN (02:20)
[2021-11-03] MEDS: NYSTATIN 500,000 UNITS/5 ML SUSPENSION PO SCH ×4 (06:05→23:54)
[2021-11-03] MEDS: INSULIN SLIDING SCALE (NOVOLOG) 1 VIAL SQ SCH ×4 (06:06→21:35)
[2021-11-03] MEDS: BICTEGRAV/EMTRICIT/TENOFOV (BIKTARVY) 50-200-25 MG TABLET PO SCH (07:13)
[2021-11-03] MEDS: amLODIPine BESYLATE 5 MG TABLET (FP) PO SCH (09:33)
[2021-11-03] MEDS: valACYclovir HCL 500 MG TABLET (FP) PO SCH ×2 (09:33→21:34)
[2021-11-03] MEDS: NICOTINE 21 MG/24 HOURS TOPICAL PATCH TD SCH (09:33)
[2021-11-03] MEDS: PRENATAL VITAMINS W/ FOLIC ACID TABLET (FP) PO SCH (09:33)
[2021-11-03] MEDS: CITALOPRAM HYDROBROMIDE 20 MG TABLET PO SCH (09:33)
[2021-11-03] MEDS: THIAMINE HCL 100 MG TABLET (FP) PO SCH (21:34)
[2021-11-03] MEDS: MIRTAZAPINE 30 MG TABLET PO SCH (21:34)
[2021-11-03] MEDS: traZODone HCL 50 MG TABLET (FP) PO SCH (21:34)
[2021-11-04] MEDS: NYSTATIN 500,000 UNITS/5 ML SUSPENSION PO SCH ×4 (06:32→22:54)
[2021-11-04] MEDS: INSULIN SLIDING SCALE (NOVOLOG) 1 VIAL SQ SCH ×2 (06:34→16:50)
[2021-11-04] MEDS: BICTEGRAV/EMTRICIT/TENOFOV (BIKTARVY) 50-200-25 MG TABLET PO SCH (08:00)
[2021-11-04] MEDS: CITALOPRAM HYDROBROMIDE 20 MG TABLET PO SCH (09:46)
[2021-11-04] MEDS: PRENATAL VITAMINS W/ FOLIC ACID TABLET (FP) PO SCH (09:47)
[2021-11-04] MEDS: amLODIPine BESYLATE 5 MG TABLET (FP) PO SCH (09:47)
[2021-11-04] MEDS: valACYclovir HCL 500 MG TABLET (FP) PO SCH ×2 (09:47→21:09)
[2021-11-04] MEDS: NICOTINE 21 MG/24 HOURS TOPICAL PATCH TD SCH (09:47)
[2021-11-04] MEDS: NICOTINE 10 MG CARTRIDGE (INHALER) IH PRN (13:09)
[2021-11-04] MEDS: traZODone HCL 50 MG TABLET (FP) PO SCH (21:08)
[2021-11-04] MEDS: THIAMINE HCL 100 MG TABLET (FP) PO SCH (21:09)
[2021-11-04] MEDS: MIRTAZAPINE 30 MG TABLET PO SCH (21:09)
[2021-11-05] MEDS: NYSTATIN 500,000 UNITS/5 ML SUSPENSION PO SCH ×3 (06:35→18:29)
[2021-11-05] MEDS: INSULIN SLIDING SCALE (NOVOLOG) 1 VIAL SQ SCH ×2 (06:38→16:44)
[2021-11-05] MEDS: BICTEGRAV/EMTRICIT/TENOFOV (BIKTARVY) 50-200-25 MG TABLET PO SCH (07:24)
[2021-11-05] MEDS: CITALOPRAM HYDROBROMIDE 20 MG TABLET PO SCH (09:48)
[2021-11-05] MEDS: NICOTINE 21 MG/24 HOURS TOPICAL PATCH TD SCH (09:48)
[2021-11-05] MEDS: amLODIPine BESYLATE 5 MG TABLET (FP) PO SCH (09:48)
[2021-11-05] MEDS: valACYclovir HCL 500 MG TABLET (FP) PO SCH ×2 (09:49→21:09)
[2021-11-05] MEDS: PRENATAL VITAMINS W/ FOLIC ACID TABLET (FP) PO SCH (09:49)
[2021-11-05] MEDS ORDERED: PT OWN MED DRAWER 7, Y5N ONE (13:39)
[2021-11-05] MEDS: NICOTINE 10 MG CARTRIDGE (INHALER) IH PRN (17:58)
[2021-11-05] MEDS: THIAMINE HCL 100 MG TABLET (FP) PO SCH (21:07)
[2021-11-05] MEDS: MIRTAZAPINE 30 MG TABLET PO SCH (21:07)
[2021-11-05] MEDS: traZODone HCL 50 MG TABLET (FP) PO SCH (21:08)
[2021-11-06] MEDS: NYSTATIN 500,000 UNITS/5 ML SUSPENSION PO SCH ×5 (00:45→23:33)
[2021-11-06] MEDS: INSULIN SLIDING SCALE (NOVOLOG) 1 VIAL SQ SCH ×2 (06:14→16:40)
[2021-11-06] MEDS ORDERED: PT OWN MED DRAWER 7, Y5N ONE (06:16)
[2021-11-06] MEDS: BICTEGRAV/EMTRICIT/TENOFOV (BIKTARVY) 50-200-25 MG TABLET PO SCH (07:11)
[2021-11-06] MEDS: valACYclovir HCL 500 MG TABLET (FP) PO SCH ×2 (09:52→21:05)
[2021-11-06] MEDS: PRENATAL VITAMINS W/ FOLIC ACID TABLET (FP) PO SCH (09:53)
[2021-11-06] MEDS: NICOTINE 21 MG/24 HOURS TOPICAL PATCH TD SCH (09:53)
[2021-11-06] MEDS: amLODIPine BESYLATE 5 MG TABLET (FP) PO SCH (09:53)
[2021-11-06] MEDS: CITALOPRAM HYDROBROMIDE 20 MG TABLET PO SCH (09:53)
[2021-11-06] MEDS: NICOTINE 10 MG CARTRIDGE (INHALER) IH PRN (18:09)
[2021-11-06] MEDS: traZODone HCL 50 MG TABLET (FP) PO SCH (21:05)
[2021-11-06] MEDS: MIRTAZAPINE 30 MG TABLET PO SCH (21:05)
[2021-11-06] MEDS: THIAMINE HCL 100 MG TABLET (FP) PO SCH (21:05)
[2021-11-07] MEDS: NYSTATIN 500,000 UNITS/5 ML SUSPENSION PO SCH ×4 (06:47→23:11)
[2021-11-07] MEDS: INSULIN SLIDING SCALE (NOVOLOG) 1 VIAL SQ SCH ×2 (06:50→16:29)
[2021-11-07] MEDS: BICTEGRAV/EMTRICIT/TENOFOV (BIKTARVY) 50-200-25 MG TABLET PO SCH (07:00)
[2021-11-07] MEDS: amLODIPine BESYLATE 5 MG TABLET (FP) PO SCH (09:27)
[2021-11-07] MEDS: PRENATAL VITAMINS W/ FOLIC ACID TABLET (FP) PO SCH (09:27)
[2021-11-07] MEDS: CITALOPRAM HYDROBROMIDE 20 MG TABLET PO SCH (09:27)
[2021-11-07] MEDS: NICOTINE 21 MG/24 HOURS TOPICAL PATCH TD SCH (09:27)
[2021-11-07] MEDS: valACYclovir HCL 500 MG TABLET (FP) PO SCH ×2 (09:28→21:09)
[2021-11-07] MEDS: IBUPROFEN 400 MG TABLET (FP) PO PRN (09:28)
[2021-11-07] MEDS: METHYL SALICYLATE/MENTHOL OINT 30 GM TUBE TP SCH ×2 (11:00→21:09)
[2021-11-07] MEDS: MIRTAZAPINE 30 MG TABLET PO SCH (21:09)
[2021-11-07] MEDS: traZODone HCL 50 MG TABLET (FP) PO SCH (21:09)
[2021-11-07] MEDS: THIAMINE HCL 100 MG TABLET (FP) PO SCH (21:09)
[2021-11-08] MEDS: NYSTATIN 500,000 UNITS/5 ML SUSPENSION PO SCH ×3 (06:33→17:45)
[2021-11-08] MEDS: INSULIN SLIDING SCALE (NOVOLOG) 1 VIAL SQ SCH ×2 (06:48→16:28)
[2021-11-08] MEDS: BICTEGRAV/EMTRICIT/TENOFOV (BIKTARVY) 50-200-25 MG TABLET PO SCH (07:09)
[2021-11-08] MEDS: valACYclovir HCL 500 MG TABLET (FP) PO SCH ×2 (09:19→21:11)
[2021-11-08] MEDS: METHYL SALICYLATE/MENTHOL OINT 30 GM TUBE TP SCH ×2 (09:19→21:12)
[2021-11-08] MEDS: CITALOPRAM HYDROBROMIDE 20 MG TABLET PO SCH (09:19)
[2021-11-08] MEDS: PRENATAL VITAMINS W/ FOLIC ACID TABLET (FP) PO SCH (09:19)
[2021-11-08] MEDS: NICOTINE 21 MG/24 HOURS TOPICAL PATCH TD SCH (09:19)
[2021-11-08] MEDS: amLODIPine BESYLATE 5 MG TABLET (FP) PO SCH (09:19)
[2021-11-08] MEDS: MIRTAZAPINE 30 MG TABLET PO SCH (21:11)
[2021-11-08] MEDS: THIAMINE HCL 100 MG TABLET (FP) PO SCH (21:11)
[2021-11-08] MEDS: traZODone HCL 50 MG TABLET (FP) PO SCH (21:11)
[2021-11-09] MEDS: NYSTATIN 500,000 UNITS/5 ML SUSPENSION PO SCH ×4 (00:10→17:48)
[2021-11-09] MEDS: INSULIN SLIDING SCALE (NOVOLOG) 1 VIAL SQ SCH ×2 (06:15→17:06)
[2021-11-09 06:53] VITALS: TEMP 97.3
[2021-11-09] MEDS: BICTEGRAV/EMTRICIT/TENOFOV (BIKTARVY) 50-200-25 MG TABLET PO SCH (07:26)
[2021-11-09] MEDS: valACYclovir HCL 500 MG TABLET (FP) PO SCH ×2 (09:15→21:23)
[2021-11-09] MEDS: amLODIPine BESYLATE 5 MG TABLET (FP) PO SCH (09:15)
[2021-11-09] MEDS: CITALOPRAM HYDROBROMIDE 20 MG TABLET PO SCH (09:16)
[2021-11-09] MEDS: METHYL SALICYLATE/MENTHOL OINT 30 GM TUBE TP SCH ×2 (09:16→21:23)
[2021-11-09] MEDS: PRENATAL VITAMINS W/ FOLIC ACID TABLET (FP) PO SCH (09:16)
[2021-11-09] MEDS: NICOTINE 21 MG/24 HOURS TOPICAL PATCH TD SCH (09:16)
[2021-11-09] MEDS: NICOTINE 10 MG CARTRIDGE (INHALER) IH PRN (09:17)
[2021-11-09] MEDS: traZODone HCL 50 MG TABLET (FP) PO SCH (21:22)
[2021-11-09] MEDS: MIRTAZAPINE 30 MG TABLET PO SCH (21:23)
[2021-11-09] MEDS: THIAMINE HCL 100 MG TABLET (FP) PO SCH (21:23)
[2021-11-10] MEDS: NYSTATIN 500,000 UNITS/5 ML SUSPENSION PO SCH ×2 (00:09→06:14)
[2021-11-10 06:32] VITALS: BP 141/88; PULSE 68
[2021-11-10] MEDS: INSULIN SLIDING SCALE (NOVOLOG) 1 VIAL SQ SCH (06:58)
[2021-11-10] MEDS: BICTEGRAV/EMTRICIT/TENOFOV (BIKTARVY) 50-200-25 MG TABLET PO SCH (08:06)
[2021-11-10] MEDS: METHYL SALICYLATE/MENTHOL OINT 30 GM TUBE TP SCH (10:30)
[2021-11-10] MEDS: CITALOPRAM HYDROBROMIDE 20 MG TABLET PO SCH (10:30)
[2021-11-10] MEDS: PRENATAL VITAMINS W/ FOLIC ACID TABLET (FP) PO SCH (10:31)
[2021-11-10] MEDS: NICOTINE 21 MG/24 HOURS TOPICAL PATCH TD SCH (10:31)
[2021-11-10] MEDS: amLODIPine BESYLATE 5 MG TABLET (FP) PO SCH (10:31)
[2021-11-10] MEDS: valACYclovir HCL 500 MG TABLET (FP) PO SCH (10:31)
== END 2021-11-10 10:09 | disposition home or self-care (01) | DRG 895 ==
LOC: YASAS 09:26 → Y6N 10:50 → Y3W 10-27 11:50
PROVIDERS: ADMIT Allergy & Immunology; ATTEND Allergy & Immunology
PROC: HZ2ZZZZ Detoxification Services for Substance Abuse Treatment (ICD-10-PCS; 2021-10-19)
PROC: HZ42ZZZ Group Counseling for Substance Abuse Treatment, Cognitive-Behavioral (ICD-10-PCS; principal; 2021-10-27)
DX: F10.20 Alcohol dependence, uncomplicated (principal); F14.20 Cocaine dependence, uncomplicated; F19.282 Other psychoactive substance dependence with psychoactive substance-induced sleep disorder; F17.210 Nicotine dependence, cigarettes, uncomplicated; F19.24 Other psychoactive substance dependence with psychoactive substance-induced mood disorder; F90.9 Attention-deficit hyperactivity disorder, unspecified type; F43.10 Post-traumatic stress disorder, unspecified; F34.1 Dysthymic disorder; Z21 Asymptomatic human immunodeficiency virus [HIV] infection status; A53.0 Latent syphilis, unspecified as early or late; I10 Essential (primary) hypertension; J45.20 Mild intermittent asthma, uncomplicated; M54.89 Other dorsalgia; K13.79 Other lesions of oral mucosa; R73.9 Hyperglycemia, unspecified; R74.01 Elevation of levels of liver transaminase levels; Z62.810 Personal history of physical and sexual abuse in childhood; Z86.19 Personal history of other infectious and parasitic diseases; Z91.010 Allergy to peanuts; Z91.013 Allergy to seafood; Z59.00 Homelessness unspecified
CPT/HCPCS: 36415; 80053; 82962; 83036; 85027; 86593; 86780; 87491; 87591; C9803; Q0162; U0003; U0005

== ENCOUNTER 2023-05-26 08:11 | Inpatient (IN) | payer OTHER ==
[2023-05-26 09:02] VITALS: BMI 21.7
[2023-05-26] MEDS ORDERED: IBUPROFEN 600 MG TABLET (FP) PO PRN (13:45)
[2023-05-26] MEDS ORDERED: POLYETHYLENE GLYCOL (HEALTHYLAX) 3350 17 GM PACKET PO PRN (13:45)
[2023-05-26] MEDS ORDERED: P-EPHED 60MG/TRIPROLIDI 2.5MG TABLET PO PRN (13:45)
[2023-05-26] MEDS ORDERED: NALOXONE HCL 0.4 MG/ML VIAL IM PRN (13:45)
[2023-05-26] MEDS ORDERED: BENZONATATE 200 MG CAPSULE PO PRN (13:45)
[2023-05-26] MEDS ORDERED: MAG HYDROX/AL HYDROX/SIMETH 30 ML UNIT-DOSE CUP PO PRN (13:45)
[2023-05-26] MEDS ORDERED: BENZOCAINE/MENTHOL (CHLORASEPTIC ) LOZENGE MM PRN (13:45)
[2023-05-26] MEDS ORDERED: guaiFENesin 600 MG TABLET.ER (FP) PO PRN (13:45)
[2023-05-26] MEDS ORDERED: NICOTINE POLACRILEX 2 MG GUM BUC PRN (13:45)
[2023-05-26] MEDS ORDERED: LOPERAMIDE HCL 2 MG CAPSULE PO PRN (13:45)
[2023-05-26] MEDS ORDERED: ACETAMINOPHEN 325 MG TABLET (FP) PO PRN (13:45)
[2023-05-26] MEDS ORDERED: AMMONIUM LACTATE 12% LOTION 225 GM BOTTLE TP PRN (13:45)
[2023-05-26] MEDS ORDERED: COLLOIDAL OATMEAL 1 BAR EACH TP PRN (13:45)
[2023-05-26] MEDS ORDERED: NALOXONE HCL (KLOXXADO) 8 MG SPRAY NS PRN (13:45)
[2023-05-26] MEDS ORDERED: MAGNESIUM HYDROX 2400MG/30ML ORAL SUSPENSION 30 ML CUP PO PRN (13:45)
[2023-05-26] MEDS ORDERED: IBUPROFEN 400 MG TABLET (FP) PO PRN (13:45)
[2023-05-26 14:45] LABS: HEMATOCRIT 34.2 % (35.4-49); HEMOGLOBIN 11.4 GM/dL (11.7-16.9); MCH 29.7 pg (25.7-33.7); MCHC 33.4 g/dl (32.0-35.9); MEAN PLT VOLUME 8.8 fl (7.5-11.1); PLATELET COUNT 127 10^3/uL (134-434); POTASSIUM 4.2 mmol/L (3.5-5.1); RBC 3.84 M/mm3 (4.00-5.60); RDW 14.6 % (11.9-15.9); WHITE BLOOD COUNT 2.5 K/mm3 (4.0-10.0)
[2023-05-26 14:54] LABS: BILIRUBIN,TOTAL 0.5 mg/dL (0.2-1)
[2023-05-26 14:57] LABS: ALBUMIN 3.2 g/dl (3.4-5.0); CALCIUM 8.8 mg/dL (8.5-10.1)
[2023-05-26 14:58] LABS: BLOOD UREA NITROGEN 20.7 mg/dL (7-18)
[2023-05-26 15:00] LABS: CREATININE 0.9 mg/dL (0.55-1.3)
[2023-05-26 15:02] LABS: TOT PROT 9.3 g/dl (6.4-8.2)
[2023-05-26] MEDS ORDERED: TUBERCULIN PPD 5 TU/0.1ML VIAL ID ONE (17:47)
[2023-05-26] MEDS: THIAMINE HCL 100 MG TABLET (FP) PO SCH (21:06)
[2023-05-26] MEDS: traZODone HCL 50 MG TABLET (FP) PO SCH (21:06)
[2023-05-26] MEDS ORDERED: MELATONIN 5 MG TABLETS PO SCH (22:00)
[2023-05-26 22:32] LABS: PH,URINE 6.5 (5.0-8.0); URINE APPEARANCE CLEAR; URINE BILIRUBIN NEGATIVE (NEGATIVE); URINE COLOR YELLOW; URINE GLUCOSE (UA) NEGATIVE (NEGATIVE); URINE KETONE NEGATIVE (NEGATIVE); URINE LEUK ESTERASE NEGATIVE (NEGATIVE); URINE NITRITE NEGATIVE (NEGATIVE); URINE PROTEIN TRACE (NEGATIVE)
[2023-05-27] MEDS ORDERED: ALBUTEROL SO4 HFA INHALER IH PRN (09:30)
[2023-05-27] MEDS ORDERED: CITALOPRAM HYDROBROMIDE 20 MG TABLET PO SCH (10:00)
[2023-05-27] MEDS ORDERED: PRENATAL VITAMINS W/ FOLIC ACID TABLET (FP) PO SCH (10:00)
[2023-05-27] MEDS ORDERED: BICTEGRAV/EMTRICIT/TENOFOV (BIKTARVY) 50-200-25 MG TABLET PO SCH (10:00)
[2023-05-27] MEDS: MIRTAZAPINE 30 MG TABLET PO SCH (21:07)
[2023-05-27] MEDS: traZODone HCL 50 MG TABLET (FP) PO SCH (21:07)
[2023-05-27] MEDS: THIAMINE HCL 100 MG TABLET (FP) PO SCH (21:07)
[2023-05-28] MEDS: BICTEGRAV/EMTRICIT/TENOFOV (BIKTARVY) 50-200-25 MG TABLET PO SCH (06:46)
[2023-05-28] MEDS: CITALOPRAM HYDROBROMIDE 20 MG TABLET PO SCH (06:48)
[2023-05-28] MEDS: PRENATAL VITAMINS W/ FOLIC ACID TABLET (FP) PO SCH (06:48)
[2023-05-28] MEDS: traZODone HCL 50 MG TABLET (FP) PO SCH (21:06)
[2023-05-28] MEDS: MIRTAZAPINE 30 MG TABLET PO SCH (21:06)
[2023-05-28] MEDS: THIAMINE HCL 100 MG TABLET (FP) PO SCH (21:06)
[2023-05-29] MEDS: BICTEGRAV/EMTRICIT/TENOFOV (BIKTARVY) 50-200-25 MG TABLET PO SCH (06:19)
[2023-05-29] MEDS: PRENATAL VITAMINS W/ FOLIC ACID TABLET (FP) PO SCH (06:19)
[2023-05-29] MEDS: CITALOPRAM HYDROBROMIDE 20 MG TABLET PO SCH (06:20)
[2023-05-29] MEDS: ARTIFICIAL TEARS (POLYVINYL ALCOHOL) OPTH DROPS OU PRN ×2 (16:03→20:59)
[2023-05-29] MEDS: traZODone HCL 50 MG TABLET (FP) PO SCH (21:00)
[2023-05-29] MEDS: THIAMINE HCL 100 MG TABLET (FP) PO SCH (21:00)
[2023-05-29] MEDS: MIRTAZAPINE 30 MG TABLET PO SCH (21:01)
[2023-05-30] MEDS: CITALOPRAM HYDROBROMIDE 20 MG TABLET PO SCH (06:04)
[2023-05-30] MEDS: PRENATAL VITAMINS W/ FOLIC ACID TABLET (FP) PO SCH (06:04)
[2023-05-30] MEDS: BICTEGRAV/EMTRICIT/TENOFOV (BIKTARVY) 50-200-25 MG TABLET PO SCH (06:04)
[2023-05-30] MEDS: hydrOXYzine PAMOATE 25 MG CAPSULE (FP) PO PRN (06:04)
[2023-05-30] MEDS: NICOTINE 14 MG/24 HOURS TOPICAL PATCH TD SCH (09:25)
[2023-05-30] MEDS: ARTIFICIAL TEARS (POLYVINYL ALCOHOL) OPTH DROPS OU PRN (18:44)
[2023-05-30] MEDS: traZODone HCL 50 MG TABLET (FP) PO SCH (21:00)
[2023-05-30] MEDS: MIRTAZAPINE 30 MG TABLET PO SCH (21:01)
[2023-05-30] MEDS: THIAMINE HCL 100 MG TABLET (FP) PO SCH (21:01)
[2023-05-31] MEDS: PRENATAL VITAMINS W/ FOLIC ACID TABLET (FP) PO SCH (06:08)
[2023-05-31] MEDS: BICTEGRAV/EMTRICIT/TENOFOV (BIKTARVY) 50-200-25 MG TABLET PO SCH (06:08)
[2023-05-31] MEDS: CITALOPRAM HYDROBROMIDE 20 MG TABLET PO SCH (06:08)
[2023-05-31] MEDS: hydrOXYzine PAMOATE 25 MG CAPSULE (FP) PO PRN (06:10)
[2023-05-31] MEDS: ARTIFICIAL TEARS (POLYVINYL ALCOHOL) OPTH DROPS OU PRN (06:11)
[2023-05-31 07:01] VITALS: TEMP 97.9
[2023-05-31] MEDS: NICOTINE 14 MG/24 HOURS TOPICAL PATCH TD SCH (09:32)
[2023-05-31] MEDS ORDERED: SULFAMETHOXAZOLE/TRIMETHOPRIM 800MG/160MG D.S. TABLET PO SCH (10:00)
[2023-05-31] MEDS ORDERED: amLODIPine BESYLATE 2.5 MG TABLET (FP) PO SCH (10:00)
[2023-05-31 10:20] VITALS: BP 120/63; PULSE 77; RESP 16
== END 2023-05-31 12:10 | disposition left against medical advice (07) | DRG 894 ==
LOC: YASAS 08:11 → Y5N 13:15
PROVIDERS: ADMIT Allergy & Immunology; ATTEND Psychiatry & Neurology Pain Medicine
PROC: HZ42ZZZ Group Counseling for Substance Abuse Treatment, Cognitive-Behavioral (ICD-10-PCS; principal; 2023-05-26)
DX: F10.20 Alcohol dependence, uncomplicated (principal); F14.20 Cocaine dependence, uncomplicated; F17.210 Nicotine dependence, cigarettes, uncomplicated; F34.1 Dysthymic disorder; F43.10 Post-traumatic stress disorder, unspecified; Z21 Asymptomatic human immunodeficiency virus [HIV] infection status; I10 Essential (primary) hypertension; Z62.810 Personal history of physical and sexual abuse in childhood; Z86.19 Personal history of other infectious and parasitic diseases; Z91.010 Allergy to peanuts; Z91.013 Allergy to seafood
CPT/HCPCS: 36415; 80053; 81003; 83036; 85027; 86593; 86780; 87635; 87811

== ENCOUNTER 2024-06-09 16:15 | Inpatient (IN) | payer OTHER ==
[2024-06-09 16:54] VITALS: BMI 23.8
[2024-06-09] MEDS ORDERED: ONDANSETRON *ODT* 4 MG TABLET SL PRN (17:53)
[2024-06-09] MEDS ORDERED: guaiFENesin 600 MG TABLET.ER (FP) PO PRN (17:53)
[2024-06-09] MEDS ORDERED: IBUPROFEN 400 MG TABLET (FP) PO PRN (17:53)
[2024-06-09] MEDS ORDERED: BENZOCAINE/MENTHOL (CHLORASEPTIC ) LOZENGE MM PRN (17:53)
[2024-06-09] MEDS ORDERED: IBUPROFEN 600 MG TABLET (FP) PO PRN (17:53)
[2024-06-09] MEDS ORDERED: MAGNESIUM HYDROX 2400MG/30ML ORAL SUSPENSION 30 ML CUP PO PRN (17:53)
[2024-06-09] MEDS ORDERED: DICYCLOMINE HCL 10 MG CAPSULE PO PRN (17:53)
[2024-06-09] MEDS ORDERED: POLYETHYLENE GLYCOL (HEALTHYLAX) 3350 17 GM PACKET PO PRN (17:53)
[2024-06-09] MEDS ORDERED: BENZONATATE 200 MG CAPSULE PO PRN (17:53)
[2024-06-09] MEDS ORDERED: NALOXONE HCL 0.4 MG/ML VIAL IM PRN (17:53)
[2024-06-09] MEDS ORDERED: NALOXONE (NARCAN) HCL 4 MG/0.1 ML SPRAY NS PRN (17:53)
[2024-06-09] MEDS ORDERED: MAG HYDROX/AL HYDROX/SIMETH 30 ML UNIT-DOSE CUP PO PRN (17:53)
[2024-06-09] MEDS ORDERED: LOPERAMIDE HCL 2 MG CAPSULE PO PRN (17:53)
[2024-06-09] MEDS: METHOCARBAMOL 500 MG TABLET PO PRN (18:23)
[2024-06-09] MEDS: chlordiazePOXIDE HCL 25 MG CAPSULE PO PRN (18:26)
[2024-06-09] MEDS: ACETAMINOPHEN 325 MG TABLET (FP) PO PRN (20:57)
[2024-06-09] MEDS: chlordiazePOXIDE HCL 25 MG CAPSULE PO SCH (22:14)
[2024-06-09] MEDS: hydrOXYzine PAMOATE 25 MG CAPSULE (FP) PO PRN (22:14)
[2024-06-09] MEDS: MELATONIN 5 MG TABLETS PO SCH (22:14)
[2024-06-09] MEDS: THIAMINE 100 MG TABLET PO SCH (22:14)
[2024-06-10] MEDS: PRENATAL VITAMINS W/ FOLIC ACID TABLET (FP) PO SCH (10:15)
[2024-06-10] MEDS: CITALOPRAM HYDROBROMIDE 10 MG TABLET PO SCH (12:45)
[2024-06-10] MEDS ORDERED: traZODone HCL 150 MG TABLET PO SCH (22:00)
[2024-06-10] MEDS: traZODone HCL 100 MG, traZODone HCL 50 MG PO SCH (22:07)
[2024-06-11] MEDS: chlordiazePOXIDE HCL 25 MG CAPSULE PO SCH (05:58)
[2024-06-11] MEDS: NICOTINE 14 MG/24 HOURS TOPICAL PATCH TD SCH (10:08)
[2024-06-12] MEDS ORDERED: chlordiazePOXIDE HCL 10 MG CAPSULE PO PRN
[2024-06-12] MEDS: chlordiazePOXIDE HCL 10 MG CAPSULE PO SCH (05:20)
[2024-06-12] MEDS: amLODIPine BESYLATE 2.5 MG TABLET (FP) PO SCH (10:44)
[2024-06-13] MEDS: chlordiazePOXIDE HCL 10 MG CAPSULE PO SCH (05:49)
[2024-06-13] MEDS: BISMUTH SUBSALICYLATE 524 MG/30 ML PO PRN (18:12)
[2024-06-14] MEDS: chlordiazePOXIDE HCL 10 MG CAPSULE PO ONE (05:45)
[2024-06-14 09:34] VITALS: BP 119/76; PULSE 87; RESP 16; TEMP 98.2
[2024-06-14] MEDS: SULFAMETHOXAZOLE/TRIMETHOPRIM 800MG/160MG D.S. TABLET PO SCH (10:01)
[2024-06-14] MEDS: BICTEGRAV/EMTRICIT/TENOFOV (BIKTARVY) 50-200-25 MG TABLET PO SCH (10:01)
== END 2024-06-14 13:07 | disposition home or self-care (01) | DRG 897 ==
LOC: YASAS 16:15 → Y3N 17:50
PROVIDERS: ADMIT Allergy & Immunology; ATTEND Surgery
PROC: HZ2ZZZZ Detoxification Services for Substance Abuse Treatment (ICD-10-PCS; principal; 2024-06-09)
DX: F10.230 Alcohol dependence with withdrawal, uncomplicated (principal); F14.20 Cocaine dependence, uncomplicated; F17.213 Nicotine dependence, cigarettes, with withdrawal; F43.10 Post-traumatic stress disorder, unspecified; F32.A Depression, unspecified; I10 Essential (primary) hypertension; Z21 Asymptomatic human immunodeficiency virus [HIV] infection status; J45.909 Unspecified asthma, uncomplicated; G47.00 Insomnia, unspecified; Z91.010 Allergy to peanuts; Z91.013 Allergy to seafood; Z91.51 Personal history of suicidal behavior; Z56.0 Unemployment, unspecified
CPT/HCPCS: 0241U-QW; 80305; 80307; 93005; 93010